=== PATIENT | female | born 1965 | race Caucasian/White ===

== ENCOUNTER 2016-05-14 08:00 | Outpatient (CLI) | payer MEDICAID | END 2016-05-14 23:59 | DX: E11.9 Type 2 diabetes mellitus without complications (principal) ==

== ENCOUNTER 2016-05-20 09:35 | Outpatient (CLI) | payer MEDICAID | END 2016-05-20 09:36 | DX: E55.9 Vitamin D deficiency, unspecified (principal); E53.8 Deficiency of other specified B group vitamins ==

== ENCOUNTER 2016-08-09 23:26 | Emergency (ER) | payer MEDICAID ==
--- NOTE | 2016-08-10 00:11 | ED Physician Documentation ---
PD HPI HEENT - Stated complaint Stated Complaint: RT EAR PAIN - Chief complaint Chief Complaint: General - History obtained from History obtained from: Patient - History of Present Illness Timing - onset: Yesterday Timing - duration: Days (2) Timing - details: Gradual onset, Still present Location: Right ear Improves: Medication Associated symptoms: Congestion, Rhinorrhea, Cough Similar symptoms before: Diagnosis (OM and sinusitis) Recently seen: Clinic (placed on zithromax 5 days ago for sinusitis.) - Additional information Additional information: 50 y/o female with chronic sinusitis has recently been placed on an course of zithromax for sinusitis and began to have pain in the right ear. She finished her antibiotic yesterday. Review of Systems Constitutional: reports: Myalgias, Fatigue. denies: Fever Eyes: denies: Decreased vision Ears: reports: Loss of hearing, Ear pain, Drainage/discharge Nose: reports: Rhinorrhea / runny nose, Congestion, Sinus pressure / pain Throat: reports: Sore throat Cardiac: denies: Chest pain / pressure, Palpitations Respiratory: reports: Cough. 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 : None HEENT: Chronic hearing loss Psych: Anxiety, Panic attacks Musculoskeletal: Osteoarthritis Derm: None - Past Surgical History Past Surgical History: Yes Ortho: Carpal Tunnel surgery /CUT ROLL MACHINE OFFBEARER: Other HEENT: Tonsil/Adenoidectomy - Present Medications Home Medications: Ambulatory Orders Medication Instructions Recorded Confirmed Vit B12/FA/Pyridoxine HCl/Aa15 1 each PO DAILY 05/27/14 09/25/14 [Glycotrol Capsule] Vit D3-Vit K/Berberine/Hops 1 each PO DAILY 05/27/14 09/25/14 [Ostera Tablet] Metformin HCl 09/25/14 09/25/14 Cefuroxime Axetil [Cefuroxime] 500 mg PO BID #28 tablet 08/10/16 - Allergies Allergies/Adverse Reactions: Allergies Allergy/AdvReac Type Severity Reaction Status Date / Time acetaminophen [From Vicodin] AdvReac Unknown Itching Verified 08/09/16 23:40 cephalexin AdvReac Unknown Respiratory Verified 08/09/16 23:40 ciprofloxacin [From Cipro] AdvReac Unknown Nausea Verified 08/09/16 23:40 ciprofloxacin HCl * AdvReac Unknown Nausea Verified 08/09/16 23:40 [From Cipro] codeine AdvReac Unknown Hives Verified 08/09/16 23:40 hydrocodone bitartrate * AdvReac Unknown Itching Verified 08/09/16 23:40 [From Vicodin] Penicillins AdvReac Unknown Itching Verified 08/09/16 23:40 propoxyphene HCl * AdvReac Unknown Hives Verified 08/09/16 23:40 [From Darvon] doxycycline AdvReac Unknown Verified 08/09/16 23:40 sulfamethoxazole AdvReac Unknown Verified 08/09/16 23:40 [From Bactrim] trimethoprim [From Bactrim] AdvReac Unknown Verified 05/28/14 08:57 - Social History Does the pt smoke?: Yes Smoking Status: Current every day smoker Does the pt drink ETOH?: Yes Does the pt have substance abuse?: No - Immunizations Immunizations are current?: Yes - POLST Patient has POLST: No PD ED PE NORMAL - Vitals Vital signs reviewed: Yes (hypertensive ) - General General: Alert and oriented X 3, Well developed/nourished - HEENT HEENT: Atraumatic, PERRL, EOMI, Other (The right TM is not visible secondary to a rupture. The left is with mild inflamation. The pharynx is without acute intlamation. There is an ulceration on the left tonsilar pillar. ) - Neck Neck: Supple, no meningeal sign, No bony TTP - Cardiac Cardiac: RRR, No murmur - Respiratory Respiratory: No respiratory distress, Clear bilaterally - Abdomen Abdomen: Soft, Non tender - Back Back: No CVA TTP, No spinal TTP - Derm Derm: Normal color, Warm and dry, No rash - Extremities Extremities: No deformity, No edema - Neuro Neuro: No motor deficit, No sensory deficit - Psych Psych: Normal mood, Normal affect Results - Vitals Vitals: Vital Signs - 24 hr 08/09/16 08/10/16 23:39 00:45 Temperature 35.3 C L Heart Rate 89 80 Respiratory 17 16 Rate Blood Pressure 167/84 H 143/83 H O2 Saturation 99 99 Oxygen O2 Source Room air PD MEDICAL DECISION MAKING - ED course Complexity details: reviewed old records, re-evaluated patient, considered differential, d/w patient ED course: 50 y/o female with a ruptured TM. She is treated with decadron and IM rocephin. Departure - Departure Disposition: 01 Home, Self Care Clinical Impression: Otitis media Qualifiers: Otitis media type: suppurative Laterality: right Chronicity: acute Recurrence: not specified as recurrent Spontaneous tympanic membrane rupture: with spontaneous rupture Qualified Code(s): H66.011 - Acute suppurative otitis media with spontaneous rupture of ear drum, right ear Condition: Stable Instructions: ED Otitis Media Acute Adult Follow-Up: Rupal Williamson PA-C [Primary Care Provider] - [facility] [Provider Group] Prescriptions: Cefuroxime Axetil [Cefuroxime] 500 mg PO BID #28 tablet Discharge Date/Time: 08/10/16 00:45
[2016-08-10] MEDS ORDERED: cefTRIAXone 1 GM VIAL IM STA (00:14)
[2016-08-10] MEDS ORDERED: DEXAMETHASONE 10 MG/ML VIAL PO STA (00:14)
[2016-08-10] MEDS ORDERED: cefTRIAXone 1 GM VIAL ONE (00:15)
[2016-08-10] MEDS ORDERED: CHERRY SYRUP 10 ML UDC PO ONE (00:15)
[2016-08-10] MEDS ORDERED: DEXAMETHASONE 10 MG/ML VIAL ONE (00:15)
[2016-08-10] MEDS ORDERED: LIDOCAINE 1% 2 ML VIAL ONE (00:15)
[2016-08-10 01:13] VITALS: BP 143/83
== END 2016-08-10 00:45 | disposition home or self-care (01) ==
LOC: ED 23:26
DX: H66.011 Acute suppurative otitis media with spontaneous rupture of ear drum, right ear (principal); G47.30 Sleep apnea, unspecified; G35 Multiple sclerosis; E11.42 Type 2 diabetes mellitus with diabetic polyneuropathy; Z79.84 Long term (current) use of oral hypoglycemic drugs; M19.90 Unspecified osteoarthritis, unspecified site; F17.200 Nicotine dependence, unspecified, uncomplicated
CPT/HCPCS: 96372; 99283; A9270

== ENCOUNTER 2016-08-12 12:15 | Emergency (ER) | payer MEDICAID ==
[2016-08-12] MEDS ORDERED: IBUPROFEN 800 MG TABLET PO STA (13:36)
[2016-08-12] MEDS ORDERED: IBUPROFEN 800 MG TABLET PO ONE (13:42)
--- NOTE | 2016-08-12 13:57 | ED Physician Documentation ---
PD HPI HEENT - Stated complaint Stated Complaint: R EAR PAIN - Chief complaint Chief Complaint: Heent - History obtained from History obtained from: Patient - History of Present Illness Timing - onset: How many weeks ago (1) Timing - details: Still present Location: Right ear Recently seen: Clinic, Emergency Dept - Treatment prior to arrival Treatment prior to arrival: Has completed a course of Zithromax for sinus infection, and has been on Ceftin for the past 3 days. - Additional information Additional information: The patient is a 50-year-old female with history of diabetes and multiple sclerosis, who presents with right earache and drainage from the right ear. She was seen in clinic 1 week ago and was prescribed Zithromax for a sinus infection. 3 days ago she was seen in the emergency department here and was diagnosed with right otitis media with ruptured tympanic membrane. She was prescribed Ceftin at that time, and has been taking the antibiotic for the past 2 days. This morning she awoke again with drainage from her right ear, and recurrent pain in her ear. She also reports sinus pressure. She denies fever, sore throat, or cough. She denies history of similar symptoms in the past. Review of Systems Constitutional: denies: Fever Eyes: denies: Irritation Ears: reports: Ear pain, Drainage/discharge Nose: reports: Sinus pressure / pain Throat: denies: Sore throat Cardiac: denies: Chest pain / pressure Respiratory: denies: Dyspnea, Cough GI: denies: Abdominal Pain, Nausea, Vomiting : denies: Dysuria Skin: denies: Rash Musculoskeletal: denies: Extremity pain Neurologic: denies: Headache PD PAST MEDICAL HISTORY - Past Medical History Cardiovascular: None Respiratory: Sleep apnea Neuro: Headache/migraine, Peripheral neuropathy, Multiple sclerosis Endocrine/Autoimmune: Type 2 diabetes GI: 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 : None HEENT: Chronic hearing loss Psych: Anxiety, Panic attacks Musculoskeletal: Osteoarthritis Derm: None - Past Surgical History Past Surgical History: Yes Ortho: Carpal Tunnel surgery /INSPECTOR MACHINE 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: Other HEENT: Tonsil/Adenoidectomy - Present Medications Home Medications: Ambulatory Orders Medication Instructions Recorded Confirmed Vit B12/FA/Pyridoxine HCl/Aa15 1 each PO DAILY 05/27/14 08/12/16 [Glycotrol Capsule] Vit D3-Vit K/Berberine/Hops 1 each PO DAILY 05/27/14 08/12/16 [Ostera Tablet] Metformin HCl 500 mg PO DAILY 09/25/14 08/12/16 Cefuroxime Axetil [Cefuroxime] 500 mg PO BID #28 tablet 08/10/16 08/12/16 Azithromycin [Zithromax] 250 mg PO DAILY #6 tablet 08/12/16 Cetirizine [ZyrTEC] 10 mg PO DAILY 08/12/16 08/12/16 Gabapentin [Gabapentin] 300 mg PO BID 08/12/16 08/12/16 Meloxicam [Mobic] 15 mg PO DAILY 08/12/16 08/12/16 - Allergies Allergies/Adverse Reactions: Allergies Allergy/AdvReac Type Severity Reaction Status Date / Time acetaminophen [From Vicodin] AdvReac Unknown Itching Verified 08/12/16 12:22 cephalexin AdvReac Unknown Respiratory Verified 08/12/16 12:22 ciprofloxacin [From Cipro] AdvReac Unknown Nausea Verified 08/12/16 12:22 ciprofloxacin HCl * AdvReac Unknown Nausea Verified 08/12/16 12:22 [From Cipro] codeine AdvReac Unknown Hives Verified 08/12/16 12:22 hydrocodone bitartrate * AdvReac Unknown Itching Verified 08/12/16 12:22 [From Vicodin] Penicillins AdvReac Unknown Itching Verified 08/12/16 12:22 propoxyphene HCl * AdvReac Unknown Hives Verified 08/12/16 12:22 [From Darvon] doxycycline AdvReac Unknown Verified 08/12/16 12:22 sulfamethoxazole AdvReac Unknown Verified 08/12/16 12:22 [From Bactrim] trimethoprim [From Bactrim] AdvReac Unknown Verified 08/12/16 12:22 - Social History Does the pt smoke?: Yes Smoking Status: Current every day smoker Does the pt drink ETOH?: Yes Does the pt have substance abuse?: No - Immunizations Immunizations are current?: Yes - POLST Patient has POLST: No PD ED PE NORMAL - Vitals Vital signs reviewed: Yes (initially hypertensive) - General General: Alert and oriented X 3, Well developed/nourished - HEENT HEENT: Atraumatic, EOMI, Pharynx benign, Other (Right tympanic membrane is erythematous and angry appearing, with loss of landmarks. There is decreased hearing on the right compared to the left.) - Neck Neck: Supple, no meningeal sign, No adenopathy, No JVD - Cardiac Cardiac: RRR, No murmur - Respiratory Respiratory: No respiratory distress, Clear bilaterally - Abdomen Abdomen: Soft, Non tender - Back Back: No CVA TTP - Derm Derm: No rash - Extremities Extremities: No edema, No calf tenderness / cord - Neuro Neuro: Alert and oriented X 3, No motor deficit, Normal speech Results - Vitals Vitals: Oxygen O2 Source Room air PD MEDICAL DECISION MAKING - ED course Complexity details: reviewed old records, considered differential, d/w patient ED course: The patient's presentation is significant for persistent right otitis media despite current treatment with Ceftin. She has history of multiple antibiotic allergies, making antibiotic choice difficulty. Although she was recently treated with Zithromax, this is the most reasonable antibiotic choice, given the restrictions caused by her multiple allergies. Treatment in the emergency department included administration of ibuprofen 800 mg orally. She is being discharged with prescription for Zithromax. I discussed with her antibiotic treatment, outpatient follow-up, as well as potentially worrisome signs or symptoms that should prompt reevaluation in the emergency department. Departure - Departure Disposition: 01 Home, Self Care Clinical Impression: Otitis media Qualifiers: Otitis media type: suppurative Laterality: right Chronicity: acute Condition: Stable Instructions: ED Otitis Media Acute Adult Follow-Up: Mindy Lombardi ARNP [Credentialed Staff Provider] - Prescriptions: Azithromycin [Zithromax] 250 mg PO DAILY #6 tablet Comments: Take Zithromax daily as prescribed. You can continue taking Ceftin as previously prescribed. Eat probiotic yogurt while on antibiotic therapy. You can use Tylenol or ibuprofen if needed for fever or discomfort. Follow up with your primary physician within one to 2 weeks. Call to schedule an appointment. Return to the emergency department if you develop increasing pain or otherwise worsening symptoms. Discharge Date/Time: 08/12/16 14:00
[2016-08-12 14:05] VITALS: BP 140/100
== END 2016-08-12 14:00 | disposition home or self-care (01) ==
LOC: ED 12:15
DX: H66.001 Acute suppurative otitis media without spontaneous rupture of ear drum, right ear (principal); E11.42 Type 2 diabetes mellitus with diabetic polyneuropathy; Z79.84 Long term (current) use of oral hypoglycemic drugs; G35 Multiple sclerosis; G47.30 Sleep apnea, unspecified; M19.90 Unspecified osteoarthritis, unspecified site; F17.200 Nicotine dependence, unspecified, uncomplicated
CPT/HCPCS: 99283; A9270

== ENCOUNTER 2016-10-15 12:18 | Outpatient (CLI) | payer MEDICAID ==
--- NOTE | 2016-10-16 08:43 | XRAY Report ---
THREE VIEW CERVICAL SPINE: 10/15/2016 CLINICAL INDICATION: Neck pain. AP, lateral, odontoid views of the cervical spine demonstrate mild degenerative disk and facet diseas e. There is no evidence of fracture or subluxation. The prevertebral soft tissues are unremarkable. IMPRESSION: MILD DEGENERATIVE CHANGES. JOB #: [id number] EXT JOB #:[id number]
== END 2016-10-15 12:19 | disposition home or self-care (01) ==
LOC: DI.N 12:18
PROVIDERS: ATTEND Physician Assistant
DX: M50.30 Other cervical disc degeneration, unspecified cervical region (principal); M47.892 Other spondylosis, cervical region
CPT/HCPCS: 72040

== ENCOUNTER 2017-07-25 08:00 | Outpatient (CLI) | payer MEDICAID ==
[2017-07-25 13:58] LABS: HB2 TOTAL 15.4 g/dL; HEMOGLOBIN A1C 0.97 g/dL; HEMOGLOBIN A1C % 7.9 % (4.6-6.2)
== END 2017-07-25 08:01 | disposition home or self-care (01) ==
LOC: LAB.N 08:00
PROVIDERS: ATTEND Nurse Practitioner Gerontology
DX: E11.9 Type 2 diabetes mellitus without complications (principal)
CPT/HCPCS: 36415; 83036

== ENCOUNTER 2018-02-12 13:42 | Emergency (ER) | payer MEDICAID ==
[2018-02-12 13:48] VITALS: BP 136/116
--- NOTE | 2018-02-12 13:55 | ED Physician Documentation ---
PD HPI LOWER EXT INJURY - Stated complaint Stated Complaint: LEFT TOE INJ - Chief complaint Chief Complaint: Ext Problem - History obtained from History obtained from: Patient - History of Present Illness PD HPI LOW EXT INJURY LOCATION: Left (She slammed her left foot after slipping this morning and has moderate pain in the area of the left first metatarsal and great toe. She is able to walk and bear weight. No other injuries. 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 : None HEENT: Chronic hearing loss Psych: Anxiety, Panic attacks Musculoskeletal: Osteoarthritis Derm: None - Past Surgical History Past Surgical History: Yes Ortho: Carpal Tunnel surgery /BOOT MAKER: Other HEENT: Tonsil/Adenoidectomy - Present Medications Home Medications: Ambulatory Orders Medication Instructions Recorded Confirmed Vit B12/FA/Pyridoxine HCl/Aa15 1 each PO DAILY 05/27/14 08/12/16 [Glycotrol Capsule] Vit D3-Vit K/Berberine/Hops 1 each PO DAILY 05/27/14 08/12/16 [Ostera Tablet] RX: Metformin HCl 500 mg PO DAILY 09/25/14 08/12/16 RX: Cefuroxime Axetil [Cefuroxime] 500 mg PO BID #28 tablet 08/10/16 08/12/16 Azithromycin [Zithromax] 250 mg PO DAILY #6 tablet 08/12/16 Gabapentin 300 mg PO BID 08/12/16 08/12/16 RX: Cetirizine [ZyrTEC] 10 mg PO DAILY 08/12/16 08/12/16 RX: Meloxicam [Mobic] 15 mg PO DAILY 08/12/16 08/12/16 - Allergies Allergies/Adverse Reactions: Allergies Allergy/AdvReac Type Severity Reaction Status Date / Time acetaminophen [From Vicodin] AdvReac Unknown Itching Verified 02/12/18 13:48 cephalexin AdvReac Unknown Respiratory Verified 02/12/18 13:48 ciprofloxacin [From Cipro] AdvReac Unknown Nausea Verified 02/12/18 13:48 ciprofloxacin HCl * AdvReac Unknown Nausea Verified 02/12/18 13:48 [From Cipro] codeine AdvReac Unknown Hives Verified 02/12/18 13:48 hydrocodone bitartrate * AdvReac Unknown Itching Verified 02/12/18 13:48 [From Vicodin] Penicillins AdvReac Unknown Itching Verified 02/12/18 13:48 propoxyphene HCl * AdvReac Unknown Hives Verified 02/12/18 13:48 [From Darvon] doxycycline AdvReac Unknown Verified 02/12/18 13:48 sulfamethoxazole AdvReac Unknown Verified 02/12/18 13:48 [From Bactrim] trimethoprim [From Bactrim] AdvReac Unknown Verified 02/12/18 13:48 - Social History Does the pt smoke?: Yes Smoking Status: Current every day smoker Does the pt drink ETOH?: Yes Does the pt have substance abuse?: No - Immunizations Immunizations are current?: Yes - POLST Patient has POLST: No PD ED PE NORMAL - Vitals Vital signs reviewed: Yes - General General: Alert and oriented X 3, No acute distress - Neck Neck: Supple, no meningeal sign, No bony TTP - Extremities Extremities: Other (Tender to the distal first metatarsal and great toe without deformity. Normal neurovascular status in all the digits. No ankle tenderness.) - Neuro Neuro: Alert and oriented X 3, Normal speech Results - Vitals Vitals: Vital Signs - 24 hr 02/12/18 13:46 Temperature 37.0 C Heart Rate 90 Respiratory 22 Rate Blood Pressure 136/116 H O2 Saturation 97 Oxygen O2 Source Room air - Rads (name of study) L foot 3v Radiology: EMP read contemporaneously (Nondisplaced fracture through the metaphysis of the first distal phalanx) Departure - Departure Disposition: 01 Home, Self Care Clinical Impression: Fracture of left great toe Condition: Good Record reviewed to determine appropriate education?: Yes Instructions: ED Fx Toe Closed Follow-Up: [facility] [Provider Group] - Within 1 week Comments: Keep the first and second toes renetta taped as shown, but she can remove that for showering etc. Also wear the shoe when up and around but you do not need to wear it in bed. Follow-up with orthopedic surgeon within the week. Call tomorrow for an appointment. Your blood pressure was elevated today on check into the emergency department. This does not mean that you have hypertension, it is a common phenomenon to come to the emergency department and have elevated blood pressure. I recommend that you see your primary care physician within the week to have it rechecked when you are feeling better. Discharge Date/Time: 02/12/18 14:17
--- NOTE | 2018-02-12 14:24 | XRAY Report ---
Reason: foot inj, 1st digit and MT Procedure Date: 02/12/2018 Accession Number: [id number] / [id number] Procedure: XR - Foot 3 View LT CPT Code: FULL RESULT: EXAM: LEFT FOOT RADIOGRAPHY EXAM DATE: 02/12/2018 02:05 PM. CLINICAL HISTORY: Foot inj, 1st digit and MT. COMPARISON: None. TECHNIQUE: 3 views. FINDINGS: Bones: There is slight lucency through the metaphysis of the first distal phalanx. This is in the region of the physis; however, lucency through the physis is not typical for a patient of this age, and this could conceivably represent nondisplaced fracture. No other finding suspicious for acute fracture. There are small posterior and plantar calcaneal spurs. Joints: No dislocation or subluxation. Slight joint space narrowing present at the first metatarsophalangeal joint. Soft Tissues: Unremarkable. IMPRESSION: Possible nondisplaced fracture through the metaphysis of the first distal phalanx. RADIA
== END 2018-02-12 14:17 | disposition home or self-care (01) ==
LOC: ED 13:42
DX: S92.425A Nondisplaced fracture of distal phalanx of left great toe, initial encounter for closed fracture (principal); W01.198A Fall on same level from slipping, tripping and stumbling with subsequent striking against other object, initial encounter; R03.0 Elevated blood-pressure reading, without diagnosis of hypertension; E11.9 Type 2 diabetes mellitus without complications; Z79.84 Long term (current) use of oral hypoglycemic drugs; F17.200 Nicotine dependence, unspecified, uncomplicated
CPT/HCPCS: 99282; 99283

== ENCOUNTER 2018-08-24 22:05 | Emergency (ER) | payer MEDICAID ==
--- NOTE | 2018-08-24 22:49 | ED Physician Documentation ---
History of Present Illness - Stated complaint Stated Complaint: LT BIG TOE INJURY - Chief complaint Chief Complaint: Trauma Ext - History obtained from History obtained from: Patient - History of Present Illness Timing: Prior to arrival - Additonal information Additional information: Patient is a 52-year-old female with history of left great toe fracture presen ting with left great toe pain after she accidentally hit it on a stool just prior to arrival. Patient reports pain, as well as swelling to the distal aspect of the great toe, but no other skin changes. Patient denies any significant change in sensation, strength, range of motion to the toe. Patient notes that she has broken this toe several times and subsequently she has developed a mild deformity. No other injuries. No abrasions, lacerations, or wounds. No other improving or worsening factors noted. 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 : None HEENT: Chronic hearing loss Psych: Anxiety, Panic attacks Musculoskeletal: Osteoarthritis Derm: None - Past Surgical History Past Surgical History: Yes Ortho: Carpal Tunnel surgery /ELECTRICAL INSTRUMENT MAKER: Other HEENT: Tonsil/Adenoidectomy - Present Medications Home Medications: Ambulatory Orders Medication Instructions Recorded Confirmed Vit B12/FA/Pyridoxine HCl/Aa15 1 each PO DAILY 05/27/14 08/12/16 [Glycotrol Capsule] Vit D3-Vit K/Berberine/Hops 1 each PO DAILY 05/27/14 08/12/16 [Ostera Tablet] Metformin HCl 500 mg PO DAILY 09/25/14 08/12/16 Cetirizine [ZyrTEC] 10 mg PO DAILY 08/12/16 08/12/16 Gabapentin 300 mg PO BID 08/12/16 08/12/16 Meloxicam [Mobic] 15 mg PO DAILY 08/12/16 08/12/16 Promethazine [Phenergan] 1 tab PO DAILY 08/24/18 08/24/18 Zonisamide 25 mg PO PRN PRN 08/24/18 08/24/18 predniSONE [Prednisone] 20 mg PO DAILY 08/24/18 08/24/18 - Allergies Allergies/Adverse Reactions: Allergies Allergy/AdvReac Type Severity Reaction Status Date / Time acetaminophen [From Vicodin] AdvReac Unknown Itching Verified 08/24/18 22:12 cephalexin AdvReac Unknown Respiratory Verified 08/24/18 22:12 ciprofloxacin [From Cipro] AdvReac Unknown Nausea Verified 08/24/18 22:12 ciprofloxacin HCl * AdvReac Unknown Nausea Verified 08/24/18 22:12 [From Cipro] codeine AdvReac Unknown Hives Verified 08/24/18 22:12 hydrocodone bitartrate * AdvReac Unknown Itching Verified 08/24/18 22:12 [From Vicodin] Penicillins AdvReac Unknown Itching Verified 08/24/18 22:12 propoxyphene HCl * AdvReac Unknown Hives Verified 08/24/18 22:12 [From Darvon] doxycycline AdvReac Unknown Verified 08/24/18 22:12 sulfamethoxazole AdvReac Unknown Verified 08/24/18 22:12 [From Bactrim] trimethoprim [From Bactrim] AdvReac Unknown Verified 08/24/18 22:12 - Social History Does the pt smoke?: Yes Smoking Status: Current every day smoker Does the pt drink ETOH?: Yes Does the pt have substance abuse?: No - Immunizations Immunizations are current?: Yes - POLST Patient has POLST: No PD ED PE NORMAL - Vitals Vital signs reviewed: Yes - General General: Alert and oriented X 3, No acute distress, Well developed/nourished - Cardiac Cardiac: Strong equal pulses (Cap refill brisk) - Derm Derm: Normal color, Warm and dry, No rash - Extremities Extremities: No deformity. No: No tenderness to palpate (Mild tenderness to palpation of the distal left great toe but no evidence of bony deformity or nail damage. Remainder of left lower extremity without deformity, pain, or change in sensation, strength, range of motion.) - Neuro Neuro: Alert and oriented X 3, No motor deficit, No sensory deficit - Psych Psych: Normal mood, Normal affect Results - Vitals Vitals: Vital Signs - 24 hr 08/24/18 22:08 Temperature 36.7 C Heart Rate 84 Respiratory 16 Rate Blood Pressure 152/96 H O2 Saturation 98 Oxygen O2 Source Room air PD MEDICAL DECISION MAKING - ED course Complexity details: reviewed results, considered differential, d/w patient ED course: Patient presenting with left great toe injury and plain films obtained to further evaluate for bony injury such as fracture or dislocation. Plain films returned unremarkable. Given traumatic mechanism, as well as physical exam findings, have lower suspicion for other etiologies including cellulitis, joint infection, gout, but considered. At this time, do not feel patient requires further work-up, but can be discharged home on supportive cares. Discussed return precautions and appropriate follow-up. Patient voiced understanding and is comfortable with discharge plan. Departure - Departure Disposition: 01 Home, Self Care Clinical Impression: Injury of toe Qualifiers: Encounter type: initial encounter Laterality: left Qualified Code(s): S99.922A - Unspecified injury of left foot, initial encounter Condition: Good Instructions: ED Sprain Toe Follow-Up: your,doctor [Other] - Within 3 Days Comments: Please continue any home medications as previously instructed. Recommend use of anti-inflammatory such as naproxen, ibuprofen, Tylenol to help relieve pain, as well as elevation and ice application to reduce swelling. Follow-up with your primary care physician in next 2 to 3 days and return to ED sooner if experience worsening symptoms or other concerns.
--- NOTE | 2018-08-24 23:06 | XRAY Report ---
Reason: injury Procedure Date: 08/24/2018 Accession Number: [id number] / [id number] Procedure: XR - Toe(s) LT CPT Code: FULL RESULT: EXAM: LEFT TOE RADIOGRAPHY. EXAM DATE: 08/24/2018 10:42 PM. CLINICAL HISTORY: Injury, left great toe. COMPARISON: TOE(S) LT 04/11/2018 1:34 PM. TECHNIQUE: 3 views. FINDINGS: Bones: Previous distal phalanx fracture is essentially healed. No definitive new displaced fracture seen in the left great toe. Joints: No malalignment. No significant degenerative changes. Soft Tissues: Normal. No soft tissue swelling. IMPRESSION: Previous distal phalanx fracture is nearly completely healed. No definitive new displaced fracture seen in the left great toe. RADIA
[2018-08-24 23:36] VITALS: BP 140/68
== END 2018-08-24 23:35 | disposition home or self-care (01) ==
LOC: ED 22:05
DX: S99.922A Unspecified injury of left foot, initial encounter (principal); W22.03XA Walked into furniture, initial encounter; E11.9 Type 2 diabetes mellitus without complications; Z79.84 Long term (current) use of oral hypoglycemic drugs; F17.200 Nicotine dependence, unspecified, uncomplicated
CPT/HCPCS: 73660; 99282; 99283

== ENCOUNTER 2018-09-13 09:26 | Outpatient (CLI) | payer MEDICAID ==
--- NOTE | 2018-09-14 09:06 | Mammography Report ---
Reason: SCREENING MAMMO Procedure Date: 09/13/2018 Accession Number: [id number] / [id number] Procedure: MGN - Screening Mammo Dig Bilat CPT Code: FULL RESULT: EXAM: Screening Mammo Dig Bilat DATE: 09/13/2018 9:54 AM CLINICAL HISTORY: Screening encounter. History of early menses. TECHNIQUE: (B) - Bilateral CC and MLO views were obtained. COMPARISON: 04/03/2014 through 02/19/2013. PARENCHYMAL PATTERN: (A) - The breast(s) demonstrate(s) scattered fibroglandular densities. FINDINGS: There are no suspicious masses, calcifications, or areas of distortion. IMPRESSION: Negative examination. BI-RADS category 1. RECOMMENDATION: (ANNUAL) - Recommend routine annual screening mammography. BI-RADS CATEGORY: (1) - Negative. STANDARD QUALIFYING STATEMENTS: 1. This examination was not reviewed with the aid of Computer-Aided Detection (CAD). 2. A negative or benign imaging report should not preclude biopsy if clinically suspicious findings are present. 3. Dense breasts may obscure an underlying neoplasm. 4. This examination was reviewed without the aid of 3D breast imaging (tomosynthesis).
== END 2018-09-13 09:27 | disposition home or self-care (01) ==
LOC: DI.N 09:26
PROVIDERS: ATTEND Obstetrics & Gynecology
DX: Z12.31 Encounter for screening mammogram for malignant neoplasm of breast (principal)
CPT/HCPCS: 77067

== ENCOUNTER 2018-10-28 10:14 | Observation (INO) | payer MEDICAID ==
[2018-10-28 12:01] LABS: BASOPHILS # (AUTO) 0.1 10^3/uL (0.0-0.1); BASOPHILS % (AUTO) 0.7 %; EOSINOPHILS # (AUTO) 0.4 10^3/uL (0.0-0.7); EOSINOPHILS % (AUTO) 3.7 %; LYMPHOCYTES # (AUTO) 2.5 10^3/uL (1.5-3.5); LYMPHOCYTES % (AUTO) 24.6 %; MEAN CORPUSCULAR HEMOGLOBIN 30.1 pg (27.0-31.0); MEAN CORPUSCULAR VOLUME 88.6 fL (81.0-99.0); MEAN PLATELET VOLUME 9.7 fL (7.9-10.8); MONOCYTES # (AUTO) 0.8 10^3/uL (0.0-1.0); MONOCYTES % (AUTO) 7.4 %; NEUTROPHILS # (AUTO) 6.5 10^3/uL (1.5-6.6); PLT - PLATELET COUNT 301 10^3/uL (130-450); RED BLOOD COUNT 4.65 10^6/uL (4.20-5.40); RED CELL DISTRIBUTION WIDTH 12.1 % (12.0-15.0); WHITE BLOOD COUNT 10.3 x10^3/uL (4.8-10.8)
--- NOTE | 2018-10-28 12:13 | XRAY Report ---
Reason: Wound infection to Left ankle area Procedure Date: 10/28/2018 Accession Number: [id number] / [id number] Procedure: XR - Ankle 2 View LT CPT Code: FULL RESULT: EXAM: LEFT ANKLE RADIOGRAPHY EXAM DATE: 10/28/2018 11:43 AM. CLINICAL HISTORY: Wound infection to Left ankle area. COMPARISON: None available. TECHNIQUE: 2 views. FINDINGS: Bones: No acute fractures are evident. No erosive changes. There is a tiny plantar calcaneal heel spur. There is minor distal Achilles tendon enthesopathy. Joints: Normal. No effusion. No subluxations. The ankle mortise is normally aligned. Soft Tissues: There may be some soft tissue swelling posteriorly. There is a 2 mm density projecting over the plantar midfoot subcutaneous tissues on the lateral view. IMPRESSION: 1. No obvious radiographic changes of osteomyelitis. 2. Tiny density projecting over the plantar midfoot subcutaneous tissues, cannot exclude foreign body. RADIA
[2018-10-28 12:14] LABS: BILIRUBIN,TOTAL 0.4 mg/dL (0.2-1.0); CALCIUM 9.3 mg/dL (8.5-10.3); CREATININE 0.8 mg/dL (0.4-1.0)
[2018-10-28 12:23] LABS: HCG,QUALITATIVE BLOOD NEGATIVE
[2018-10-28] MEDS ORDERED: fentaNYL 100 MCG/2 ML VIAL IVP STA (13:11)
--- NOTE | 2018-10-28 15:09 | ED Physician Documentation ---
History of Present Illness - Stated complaint Stated Complaint: LT FOOT PAIN - Chief complaint Chief Complaint: Wound - Additonal information Additional information: This is a 52-year-old female with a history of diabetes who presents with i ncreasing redness and signs of infection over her left posterior leg. Patient states around a week ago she scraped her leg against a fence, she had a wound which appeared that he was getting infected so she saw physician who prescribed her clindamycin. She has been taking clindamycin however the redness has been increasing and over the last day she states that is progressed around 4 inches on all sides and is increasingly tender. She denies fever. Review of Systems Constitutional: denies: Fever Eyes: denies: Loss of vision Nose: denies: Rhinorrhea / runny nose Cardiac: denies: Chest pain / pressure Respiratory: denies: Dyspnea GI: denies: Abdominal Pain Skin: reports: Lesions Musculoskeletal: reports: Extremity pain Neurologic: denies: Generalized weakness PD PAST MEDICAL HISTORY - Past Medical History Cardiovascular: None Respiratory: COPD, Sleep apnea Endocrine/Autoimmune: Type 2 diabetes GI: None REVENUE FIELD AGENT: None : None HEENT: Chronic hearing loss Psych: Anxiety, Panic attacks Musculoskeletal: Osteoarthritis, Rheumatoid arthritis Derm: None - Past Surgical History Past Surgical History: Yes Ortho: Carpal Tunnel surgery /REVENUE FIELD AGENT: Other HEENT: Tonsil/Adenoidectomy - Present Medications Home Medications: Ambulatory Orders Medication Instructions Recorded Confirmed Metformin HCl 1,000 mg PO BIDWM 09/25/14 10/28/18 Cetirizine [ZyrTEC] 10 mg PO DAILY 08/12/16 10/28/18 Zonisamide 100 mg PO QPM 08/24/18 10/28/18 Albuterol Sulfate [Albuterol 2 puffs INH Q4H PRN 10/28/18 10/28/18 Sulfate Hfa] Cholecalciferol (Vitamin D3) 6,000 units PO DAILY 10/28/18 10/28/18 [Vitamin D3] Duloxetine HCl 30 mg PO QPM 10/28/18 10/28/18 Fluticasone [Flonase] 2 spray SB DAILY 10/28/18 10/28/18 Gabapentin 300 mg PO DAILY 10/28/18 10/28/18 Gabapentin 600 mg PO QPM 10/28/18 10/28/18 Glatiramer Acetate [Copaxone] 40 mg SUBQ SUWEFR@0900 10/28/18 10/28/18 Meloxicam 7.5 mg PO BID 10/28/18 10/28/18 Promethazine HCl 6.25 mg PO Q6H PRN 10/28/18 10/28/18 Rizatriptan Benzoate [Rizatriptan] 10 mg PO ONCE PRN 10/28/18 10/28/18 - Allergies Allergies/Adverse Reactions: Allergies Allergy/AdvReac Type Severity Reaction Status Date / Time acetaminophen [From Vicodin] AdvReac Unknown Itching Verified 08/24/18 22:12 cephalexin AdvReac Unknown Respiratory Verified 08/24/18 22:12 ciprofloxacin [From Cipro] AdvReac Unknown Nausea Verified 08/24/18 22:12 codeine AdvReac Unknown Hives Verified 08/24/18 22:12 hydrocodone bitartrate * AdvReac Unknown Itching Verified 08/24/18 22:12 [From Vicodin] Penicillins AdvReac Unknown Itching Verified 08/24/18 22:12 propoxyphene HCl * AdvReac Unknown Hives Verified 08/24/18 22:12 [From Darvon] doxycycline AdvReac Unknown Verified 08/24/18 22:12 sulfamethoxazole AdvReac Unknown Verified 08/24/18 22:12 [From Bactrim] trimethoprim [From Bactrim] AdvReac Unknown Verified 08/24/18 22:12 - Social History Does the pt smoke?: Yes Smoking Status: Current every day smoker Does the pt drink ETOH?: Yes Does the pt have substance abuse?: No - Immunizations Immunizations are current?: Yes - POLST Patient has POLST: No PD ED PE NORMAL - Vitals Vital signs reviewed: Yes - General General: Alert and oriented X 3 - HEENT HEENT: PERRL - Cardiac Cardiac: RRR, No murmur - Respiratory Respiratory: Clear bilaterally - Abdomen Abdomen: Soft, Non tender, Non distended - Derm Derm: Other (Over the posterior lower left leg there is a 1cm ulceration that extends throught the subcutaneous tissue. There is 4-6cm of circumferential erythema surrounding this wound, and the region is mildly tender to palpation. The calf muscle itself is non-tender, the extremity is neurovascularly intact.) - Extremities Extremities: No deformity - Neuro Neuro: Alert and oriented X 3 - Psych Psych: Normal mood, Normal affect Results - Vitals Vitals: Vital Signs - 24 hr 10/28/18 10/28/18 10:17 14:00 Temperature 36.3 C L 36.1 C L Heart Rate 85 69 Respiratory 16 20 Rate Blood Pressure 143/91 H 125/70 O2 Saturation 100 100 Oxygen O2 Source Room air - Labs Labs: Laboratory Tests 10/28/18 10/28/18 10/28/18 11:55 11:55 11:55 WBC 10.3 RBC 4.65 Hgb 14.0 Hct 41.2 MCV 88.6 MCH 30.1 MCHC 34.0 RDW 12.1 Plt Count 301 MPV 9.7 Neut # (Auto) 6.5 Lymph # (Auto) 2.5 Blackford # (Auto) 0.8 Eos # (Auto) 0.4 Baso # (Auto) 0.1 Absolute Nucleated RBC 0.00 Nucleated RBC % 0.0 Sodium 137 Potassium 4.0 Chloride 98 L Carbon Dioxide 24 Anion Gap 15.0 H BUN 12 Creatinine 0.8 Estimated GFR (MDRD) 76 L Glucose 240 H Lactic Acid 1.5 Calcium 9.3 Total Bilirubin 0.4 AST 17 ALT 14 Alkaline Phosphatase 110 Total Protein 8.0 Albumin 4.0 Globulin 4.0 Albumin/Globulin Ratio 1.0 Serum HCG, Qual 10/28/18 11:55 WBC RBC Hgb Hct MCV MCH MCHC RDW Plt Count MPV Neut # (Auto) Lymph # (Auto) Blackford # (Auto) Eos # (Auto) Baso # (Auto) Absolute Nucleated RBC Nucleated RBC % Sodium Potassium Chloride Carbon Dioxide Anion Gap BUN Creatinine Estimated GFR (MDRD) Glucose Lactic Acid Calcium Total Bilirubin AST ALT Alkaline Phosphatase Total Protein Albumin Globulin Albumin/Globulin Ratio Serum HCG, Qual NEGATIVE - Rads (name of study) XR ankle Radiology: Prelim report reviewed (No osteomyelitis) PD MEDICAL DECISION MAKING - ED course Complexity details: considered differential (Cellulitis, NSTI, diabetic wound, abscess, osteomyelitis, antibiotic failure) ED course: On exam patient has unremarkable vital signs. She has significant erythema around the wound on her leg, that has been spreading despite taking clindamycin. I marked the edges of wound erythema. Labs and blood cultures were drawn, lacti acid is normal, CBC unremarkable without leukocytosis. Patient is afebrile. She was started on broad spectrum antibiotics given the reported progression of her infection over the past 24 hours and her diabetes. XR shows no signs of osteomyelitis. Clinically she is overall well-appearing and on re-exam she does not have significant spread of the erythema, making NSTI unlikely. Patient was admitted to the hospital for further evaluation and treatment of her cellulitis refractory to PO abx. Departure - Departure Disposition: ED Place in Observation Discharge Date/Time: 10/28/18 16:54
[2018-10-28] MEDS ORDERED: TEMAZEPAM 15 MG CAPSULE PO PRN (15:34)
--- NOTE | 2018-10-28 15:42 | HISTORY & PHYSICAL EXAMINATION ---
Chief Complaint - Chief Complaint Chief Complaint: LLE cellulitis History of Present Illness - Admitted From Admitted From:: ED - History Obtained From Records Reviewed: yes History obtained from: patient, chart review Exam Limitations: none - History of Present Illness HPI Comment/Other: Khushboo Murray is an old appearing 52-year old white female with a past medical history of hypertension, multiple sclerosis affecting cognition/word finding, neurogenic bladder, tobacco dependence since age 17, methamphetamine dependence, COPD, RAHEEM without the use of a home CPAP, anxiety disorder, cervical dysplasia- high grade requiring several LEEP procedures, HPV, ganglion cyst of right hand, chronic pain syndrome, depression, anxiety, lumbago with sciatica, muscles spasms, chronic sinusitis, vitamin B12 deficiency, vitamin D deficiency, hepatitis C, vulvar cancer, migraines, and difficult social living situation. The patient presented with increasing redness, pain, swelling to her left posterior leg, near the achilles tendon. She admits to scraped her leg against a fence post about a week ago. She had a wound which appeared that he was getting infected so she saw Dr. Taylor, who prescribed her clindamycin. A wound culture was obtained and is pending from 10/26/2018. She has been taking clindamycin as prescribed, however, the redness, pain, and swelling to her LLE has been increasing, which is now around 4 inches on all sides of the injury greater than when she first saw her provider in the clinic. She is scheduled to have a LEEP procedure at [facility] with Dr. Benita Hicks next week, and wor estefania that this infection will prevent her from getting that done. She states that she has noticed some chills, increased thirst, and decreased appetite over the past 24 hours, but cannot check her blood sugars lately since she lost her glucometer. Her labs are insignificant without an elevated WBC count and without electrolyte abnormalities. She states that she used meth last on September 26, 2018 and her [employer] tox screen matches this claim with being negative for all substances. A left ankle x-ray shows an achilles bone spur without evidence of osteomyelitis. Vital signs were normal and she required no oxygen. She will be admitted to observation for IV treatment for at least one night of stay. History - Past Medical History Cardiovascular: reports: Hypertension, High cholesterol, Coronary artery disease, Peripheral Vascular Disease, Murmur Respiratory: reports: COPD, Emphysema, Pneumonia, Sleep apnea Neuro: reports: Headaches, Migraines, Peripheral neuropathy, Multiple sclerosis (since 2003), Other (cognitive impairment, word finding difficulties d/t MS) Endocrine/Autoimmune: reports: Type 2 diabetes GI: reports: GERD, Hepatitis (hep C) KETTLE LOADER: reports: Other (Vulvar cancer, +HPV) : reports: Retention, Incontinence, Nocturia, Frequency HEENT: reports: Chronic vision loss, Chronic sinusitis, Chronic hearing loss Psych: reports: Depression, Anxiety, Panic attacks, Post traumatic stress disorder Musculoskeletal: reports: Osteoarthritis, Rheumatoid arthritis Derm: reports: None, Other (Problems with hair/nails growing) MRSA Hx?: No - Past Surgical History General: reports: Colonoscopy, EGD Ortho: reports: Carpal Tunnel surgery /KETTLE LOADER: reports: LEEP (Cervical surgery), Other (vulvar cancer) HEENT: reports: Tonsil/Adenoidectomy Derm: reports: Skin grafts, Debridement (Status post 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 She has 4 grown children, 2 boys, 2 girls all of whom she is close to. She has lived on the [place] since [place]. She has had substance abuse problems for most of her adult life starting in her 20's including heroin, and methamphetamines. She has also been a life long cigarette smoker from age 17-currently ~ 1-2 PPD. She has never been an alcoholic. She has been through several recovery treatment programs in the past and would like to go again in the near future. She wishes to be a FULL code. - Substance History Use: Uses substance without health or social issues: Tobacco Use Issues: Anxiety Disorder, Mood Disorder - POLST Patient has POLST: No Meds/Allgy - Home Medications Home Medications: Ambulatory Orders Medication Instructions Recorded Confirmed Metformin HCl 1,000 mg PO BIDWM 09/25/14 10/28/18 Cetirizine [ZyrTEC] 10 mg PO DAILY 08/12/16 10/28/18 Zonisamide 100 mg PO QPM 08/24/18 10/28/18 Albuterol Sulfate [Albuterol 2 puffs INH Q4H PRN 10/28/18 10/28/18 Sulfate Hfa] Cholecalciferol (Vitamin D3) 6,000 units PO DAILY 10/28/18 10/28/18 [Vitamin D3] Duloxetine HCl 30 mg PO QPM 10/28/18 10/28/18 Fluticasone [Flonase] 2 spray SB DAILY 10/28/18 10/28/18 Gabapentin 300 mg PO DAILY 10/28/18 10/28/18 Gabapentin 600 mg PO QPM 10/28/18 10/28/18 Glatiramer Acetate [Copaxone] 40 mg SUBQ SUWEFR@0900 10/28/18 10/28/18 Meloxicam 7.5 mg PO BID 10/28/18 10/28/18 Promethazine HCl 6.25 mg PO Q6H PRN 10/28/18 10/28/18 Rizatriptan Benzoate [Rizatriptan] 10 mg PO ONCE PRN 10/28/18 10/28/18 - Allergies Allergies/Adverse Reactions: Allergies Allergy/AdvReac Type Severity Reaction Status Date / Time acetaminophen [From Vicodin] AdvReac Unknown Itching Verified 08/24/18 22:12 cephalexin AdvReac Unknown Respiratory Verified 08/24/18 22:12 ciprofloxacin [From Cipro] AdvReac Unknown Nausea Verified 08/24/18 22:12 codeine AdvReac Unknown Hives Verified 08/24/18 22:12 hydrocodone bitartrate * AdvReac Unknown Itching Verified 08/24/18 22:12 [From Vicodin] Penicillins AdvReac Unknown Itching Verified 08/24/18 22:12 propoxyphene HCl * AdvReac Unknown Hives Verified 08/24/18 22:12 [From Darvon] doxycycline AdvReac Unknown Verified 08/24/18 22:12 sulfamethoxazole AdvReac Unknown Verified 08/24/18 22:12 [From Bactrim] trimethoprim [From Bactrim] AdvReac Unknown Verified 08/24/18 22:12 Review of Systems - Constitutional Constitutional: reports: Fatigue, Chills, Weakness, Poor appetite - Eyes Eyes: reports: Vision loss, Corrective lenses - Ears, Nose & Throat Ears, Nose & Throat: reports: Nasal congestion, Postnasal drainage, Dentures, Sore throat, Hoarseness - Cardiovascular Cariovascular: reports: Decr. exercise tolerance - Respiratory Respiratory: reports: Cough, Sputum production, Wheezing, Snoring, SOB with e xertion - Gastrointestinal Gastrointestinal: reports: Abdominal distention, Constipation, Nausea, Reflux/heartburn, Bloating, Poor appetite - Genitourinary Genitourinary: reports: Dysuria, Urgency, Incontinence - Musculoskeletal Musculoskeletal: reports: Back pain, Muscle aches, Stiffness, Limited range of motion, Muscle weakness - Integumentary Integumentary: reports: Lesions, Dryness, Pigment changes, Nail changes - Neurological Neurological: reports: General weakness, Headache, Memory problems, Pre-existing deficit - Psychiatric Psychiatric: reports: Depression, Anxiety - Hematologic/Lymphatic Hematologic/Lymphatic: reports: Recurrent infections - All Other Systems All Other Systems: reports: Reviewed and negative Prior Level of Functionality: Lives independently, no recent falls, is the caregiver to her nephews. Drives a car. Exam - Vital Signs Reviewed Vital Signs: Yes Vital Signs: Vital Signs x48h Temp Pulse Resp BP Pulse Ox 10/28/18 14:00 36.1 C L 69 20 125/70 100 10/28/18 10:17 36.3 C L 85 16 143/91 H 100 - Physical Exam General Appearance: positive: No acute distress, Alert, Anxious Eyes Bilateral: positive: PERRL ENT: positive: Pharyngeal erythema, Oral lesions, Dry mucous membranes Neck: positive: No JVD, Trachea midline, Lymphadenopathy (R), Lymphadenopathy (L) Respiratory: positive: Chest non-tender, No respiratory distress, Other (diminished bilaterally) Cardiovascular: positive: Regular rate & rhythm, No gallop, Systolic murmur, Decreased pulse(s) Peripheral Pulses: positive: 1+ Abdomen: positive: Non-tender, Nml bowel sounds, Hepatomegaly Back: positive: Nml inspection Skin: positive: No rash, Warm, Dry, Pallor Extremities: positive: Pedal edema, Joint swelling Neurologic/Psychiatric: positive: Oriented x3, CN's nml (2-12), Motor nml, Sensation nml, Weakness, Depressed mood/affect Reflexes: Bicep (R): 3+, Bicep (L): 3+ Conclusion/Plan - Problem List (1) Cellulitis of left ankle Conclusion/Plan: - Initial injury of hitting a fence post against her achilles region of her LLE - Imaging shows no osteo - Poor blood sugar control is suspected per patient - Redness, swelling, and increased tenderness on exam- no drainage, but evidence of previous drainage - Wound culture from 10/26 is pending, Blood cultures pending, urinalysis is without infection Plan: Start vanco per pharmacy, monitor for improvement, consider ortho consult, obtain inflammatory markers, hemoglobin A1C in the AM (2) Sleep apnea Conclusion/Plan: - No use of home CPAP - Long standing tobacco dependence - Patient admits to intermittent BLE swelling, abdominal edema Plan: Encourage sleep study, encourage smoking cessation (3) Tobacco dependence Conclusion/Plan: - Tobacco dependence since age 17 - 1-2 PPD - No interest in stopping - Poor wound healing potential, poor surgical candidate Plan: Offer nicotine patch, do not allow patient to leave the nursing unit, encourage cessation, pulmonary rehab (4) Methamphetamine dependence Conclusion/Plan: - Admits to using last on 09/26 - [facility] tox screen is negative for all substances - Several attempts at recovery/rehab programs - Patient states she is interested in going to rehab in the near future to ensure her sobriety Plan: Continue to encourage cessation (5) Obstructive chronic bronchitis without exacerbation Conclusion/Plan: - Current tobacco use (started at age 17), 1-2 PPD as the most likely culprit in this disease - Patient admits to seeing a fire watchman in the past, RAHEEM without a recent sleep study - No long acting inhalers on med list, likely due to continued tobacco dependence - Chronic sinusitis as a consequence, no home oxygen - No recent pneumonia, but admits to chronic sinus infections with typical daily purulent drainage from nasal passages - Productive cough is also reported every AM Plan: Continue to encourage cessation, provide nicotine patch, offer pulmonary rehab upon discharge (6) Medical non-compliance Conclusion/Plan: - Patient admits to avoiding the doctor's office, and not having routine diabetes appointments - Several health issues with little preventative medicine - Is not ready to stop smoking - States that she is willing to go back into rehab in the near future for her meth use Plan: Encourage smoking cessation, offer social work support, treat acute infection (7) Diabetes mellitus type 2, controlled Conclusion/Plan: - Patient takes Metformin at home - Admits to loosing her glucometer at home - Admits to eating too much candy this summer, and being very thirsty lately - States that she thinks her last A1C was around 7% Plan: Start nightly Lantus, SSI, and blood sugar checks, hold metformin as per hospital protocol, check hemoglobin A1C in the AM (8) Multiple sclerosis Conclusion/Plan: - First diagnosed in 2003 - Patient states that she sees Dr. Marcial from [facility] for this condition - Patient states that she has been told that her MS involves her cognition, and word finding abilities - Home meds include zonisamide, copaxone, and gabapentin Plan: Continue home meds, treat acute illness (9) Cervical dysplasia Conclusion/Plan: - Patient admits to several LEEP procedures in the past for her HPV - Also a history of vulvar cancer - Denies bleeding or pain Plan: Treat acute illness (10) Anxiety disorder Conclusion/Plan: - Longstanding disorder - Prescribed Cymbalta at home Plan: Offer social work, encourage smoking cessation, treat acute illness - Lab Results Lab results reviewed: Yes Aayush Bones: 10/29/18 05:00 10/29/18 05:00 Core Measures - Anticipated LOS I expect patient to be DC'd or transferred within 96 hours.: Yes - DVT/VTE - Prophylaxis VTE/DVT Device ordered at admit?: Yes VTE/DVT Prophylaxis med ordered at admit?: Yes - Stroke - Rehab Assessment Rehab services assessment to be ordered?: No Not Ordered - Medical Reason: Contraindicated - AMI - Statin at Admit Aspirin Prescribed on Admit: Yes
[2018-10-28] MEDS ORDERED: VANCOMYCIN PER PHARMACY 100 GM in SODIUM CHLORIDE 0.9% 250 ML IV SCH (16:00)
[2018-10-28] MEDS ORDERED: SODIUM CHLORIDE 0.9% 500 ML ONE (16:48)
[2018-10-28] MEDS ORDERED: VANCOMYCIN 1 GM VIAL ONE (16:48)
[2018-10-28] MEDS ORDERED: MELOXICAM 7.5 MG TABLET PO PRN (17:04)
[2018-10-28] MEDS: SODIUM CHLORIDE 0.9% 1,000 ML IV SCH (17:31)
[2018-10-28] MEDS: SODIUM CHLORIDE FLUSH 0.9% 10 ML SYRINGE IVP SCH (17:32)
[2018-10-28] MEDS: INSULIN ASPART 300 UNIT/3 ML PEN SUBQ SCH ×2 (17:32→21:44)
[2018-10-28] MEDS ORDERED: IPRATROPIUM/ALBUTEROL 3 ML NEB INH PRN (19:00)
[2018-10-28] MEDS: NICOTINE 21 MG PATCH TOP SCH (19:02)
[2018-10-28] MEDS: VANCOMYCIN INJ 1 GM, VANCOMYCIN INJ 500 MG in SODIUM CHLORIDE 0.9% 500 ML IV SCH (19:04)
[2018-10-28 19:46] LABS: MUDS CUTOFF CONCENTRATIONS CUTOFF CONC BELOW:
[2018-10-28 19:48] LABS: BILIRUBIN,URINE NEGATIVE (NEGATIVE); GLUCOSE, URINE (UA) >=1000 mg/dL (NEGATIVE); KETONES,URINE (UA) NEGATIVE (NEGATIVE); LEUKOCYTE ESTERASE, URINE NEGATIVE (NEGATIVE); NITRITE,URINE NEGATIVE (NEGATIVE); OCCULT BLOOD,URINE NEGATIVE (NEGATIVE); PROTEIN,URINE NEGATIVE (NEGATIVE); UROBILINOGEN,URINE 0.2 (NORMAL) E.U./dL (NORMAL)
[2018-10-28 19:56] LABS: CLARITY,URINE CLEAR (CLEAR)
[2018-10-28 20:00] LABS: AMPHETAMINE SCREEN,URINE NEGATIVE (NEGATIVE); BENZODIAZEPINES SCREEN, URINE NEGATIVE (NEGATIVE); COCAINE SCREEN URINE NEGATIVE (NEGATIVE); METHADONE SCREEN, URINE NEGATIVE (NEGATIVE); METHAMPHETAMINES SCREEN, URINE NEGATIVE (NEGATIVE); OPIATE SCREEN, URINE NEGATIVE (NEGATIVE); OXYCODONE SCREEN, URINE NEGATIVE (NEGATIVE); PROPOXYPHENE SCREEN, URINE NEGATIVE (NEGATIVE); TRICYCLIC ANTIDEPRESSANT,URINE NEGATIVE (NEGATIVE)
[2018-10-28 20:16] LABS: BACTERIA,URINE None Seen /HPF (None Seen); RBC,URINE None Seen /HPF (0-5); SQUAMOUS EPITHELIAL CELL,UR FEW Squamous (<= Few)
[2018-10-28] MEDS ORDERED: INSULIN GLARGINE 300 UNIT/3 ML PEN SUBQ SCH (21:00)
[2018-10-28] MEDS ORDERED: MELOXICAM 7.5 MG TABLET PO SCH (21:00)
[2018-10-28] MEDS: DULoxetine 30 MG CAPSULE PO SCH (21:46)
[2018-10-28] MEDS: FAMOTIDINE 20 MG TABLET PO SCH (21:46)
[2018-10-28] MEDS: GABAPENTIN 300 MG CAPSULE PO SCH (21:46)
[2018-10-28] MEDS: ZONISAMIDE 25 MG PO SCH (22:48)
[2018-10-29] MEDS: SENNA 8.6 MG TABLET PO SCH ×4 (00:05→17:47)
[2018-10-29] MEDS: SODIUM CHLORIDE FLUSH 0.9% 10 ML SYRINGE IVP SCH ×4 (01:59→17:49)
[2018-10-29] MEDS: SODIUM CHLORIDE 0.9% 1,000 ML IV SCH ×2 (02:00→05:28)
[2018-10-29 05:18] LABS: BASOPHILS # (AUTO) 0.1 10^3/uL (0.0-0.1); BASOPHILS % (AUTO) 1.2 %; EOSINOPHILS # (AUTO) 0.5 10^3/uL (0.0-0.7); EOSINOPHILS % (AUTO) 6.6 %; HGB - HEMOGLOBIN 12.5 g/dL (12.0-16.0); LYMPHOCYTES # (AUTO) 2.2 10^3/uL (1.5-3.5); LYMPHOCYTES % (AUTO) 32.9 %; MEAN CORPUSCULAR HEMOGLOBIN 29.2 pg (27.0-31.0); MEAN CORPUSCULAR HGB CONC 33.1 g/dL (32.0-36.0); MEAN CORPUSCULAR VOLUME 88.3 fL (81.0-99.0); MEAN PLATELET VOLUME 9.5 fL (7.9-10.8); MONOCYTES # (AUTO) 0.6 10^3/uL (0.0-1.0); MONOCYTES % (AUTO) 8.5 %; NEUTROPHILS # (AUTO) 3.4 10^3/uL (1.5-6.6); NEUTROPHILS % (AUTO) 50.4 %; PLT - PLATELET COUNT 262 10^3/uL (130-450); RED BLOOD COUNT 4.28 10^6/uL (4.20-5.40); RED CELL DISTRIBUTION WIDTH 12.1 % (12.0-15.0); WHITE BLOOD COUNT 6.8 x10^3/uL (4.8-10.8)
[2018-10-29] MEDS: VANCOMYCIN INJ 1 GM, VANCOMYCIN INJ 500 MG in SODIUM CHLORIDE 0.9% 500 ML IV SCH ×2 (05:22→17:50)
[2018-10-29 05:34] LABS: ALBUMIN 3.2 g/dL (3.2-5.5); BILIRUBIN,TOTAL 0.5 mg/dL (0.2-1.0); CALCIUM 8.9 mg/dL (8.5-10.3); CREATININE 0.8 mg/dL (0.4-1.0); CRP - C-REACTIVE PROTEIN 2.3 mg/dL (0-1.0); MAGNESIUM 1.8 mg/dL (1.7-2.8); TOTAL PROTEIN 6.5 g/dL (6.7-8.2)
[2018-10-29] MEDS: SODIUM CHLORIDE FLUSH 0.9% 10 ML SYRINGE IVP PRN ×2 (05:53→18:49)
[2018-10-29] MEDS: ONDANSETRON 4 MG/2 ML VIAL IVP PRN ×2 (05:53→18:48)
[2018-10-29 05:55] LABS: HB2 TOTAL 13.7 g/dL; HEMOGLOBIN A1C 1.13 g/dL; HEMOGLOBIN A1C % 9.7 % (4.6-6.2)
[2018-10-29] MEDS: CETIRIZINE 10 MG TABLET PO SCH (08:23)
[2018-10-29] MEDS: GABAPENTIN 300 MG CAPSULE PO SCH ×2 (08:23→21:21)
[2018-10-29] MEDS: FAMOTIDINE 20 MG TABLET PO SCH ×2 (08:23→21:22)
[2018-10-29] MEDS: CHOLECALCIFEROL 1,000 UNIT TABLET PO SCH (08:23)
[2018-10-29] MEDS: NICOTINE 21 MG PATCH TOP SCH (08:24)
[2018-10-29] MEDS: FLUTICASONE NASAL SPRAY NAS SCH (08:24)
[2018-10-29] MEDS: POLYETHYLENE GLYCOL 3350 17 GM PACKET PO SCH ×2 (08:24→08:30)
[2018-10-29] MEDS: INSULIN ASPART 300 UNIT/3 ML PEN SUBQ SCH ×6 (08:24→21:22)
[2018-10-29] MEDS ORDERED: NICOTINE 21 MG PATCH TOP SCH (15:09)
[2018-10-29] MEDS ORDERED: GLATIRAMER ACETATE 40 MG SUBQ SCH (15:11)
[2018-10-29] MEDS: BACITRACIN OINT TOP SCH ×2 (16:45→18:29)
[2018-10-29] MEDS: METOCLOPRAMIDE 10 MG TABLET PO PRN (19:30)
[2018-10-29] MEDS ORDERED: INSULIN GLARGINE 300 UNIT/3 ML PEN SUBQ SCH (21:00)
[2018-10-29] MEDS: DULoxetine 30 MG CAPSULE PO SCH (21:23)
[2018-10-29] MEDS: ZONISAMIDE 25 MG PO SCH (21:24)
--- NOTE | 2018-10-29 21:39 | PROVIDER PROGRESS NOTE ---
Subjective - Prog Note Date Prog Note Date: 10/29/18 Prog Note Time: 12:00 - Subjective Pt reports feeling: Improved Subjective: Khushboo admits to some improvement in her swelling, pain, and redness to her LLE. She wishes to have it covered during the day and open to air at night. Current Medications - Current Medications Current Medications: Active Medications: Albuterol/Ipratropium (Duoneb) 3 ml INH RTQ4H PRN Bacitracin (Bacitracin) 1 packet TOP BID [facility] Cetirizine HCl (Zyrtec) 10 mg PO DAILY YAW Cholecalciferol (Vitamin D3) 6,000 unit PO DAILY YAW Duloxetine HCl (Cymbalta) 30 mg PO QPM YAW Famotidine (Pepcid) 20 mg PO BID YAW Fluticasone Propionate (Flonase) 2 sprays SB DAILY [facility] Gabapentin (Neurontin) 300 mg PO DAILY YAW Gabapentin (Neurontin) 600 mg PO QPM YAW Vancomycin HCl 1 gm/Vancomycin HCl 500 mg/ Sodium Chloride 500 mls @ 250 mls/hr IV Q12H YAW Insulin Aspart (Novolog) 2 - 10 unit SUBQ 0800,1200,1700,2100 YAW; Protocol Insulin Aspart (Novolog) 5 unit SUBQ TIDWM [facility] Insulin Glargine (Lantus Solostar) 18 unit SUBQ QPM YAW Lorazepam (Ativan) 1 mg PO Q6H PRN Meloxicam (Mobic) 7.5 mg PO BID PRN Metoclopramide HCl (Reglan) 10 mg PO Q6H PRN Nicotine (Nicoderm) 1 patch TOP DAILY [facility] Ondansetron HCl (Zofran Inj) 4 mg IVP Q6HR PRN (Rizatriptan Benzoate [ Rizatriptan] 10 Mg) 1 each PO ONCE PRN (Zonisamide [ Zonisamide] 25 Mg) Tab 4 each PO QPM YAW (Glatiramer Acetate [Copaxone] 40 Mg) Inj 1 each SUBQ SuWeFr@1600 [facility] Polyethylene Glycol (Miralax) 17 gm PO DAILY YAW Temazepam (Restoril) 15 mg PO QPM PRN HOME meds: Metformin HCl 1,000 mg PO BIDWM 09/25/14 Cetirizine [ZyrTEC] 10 mg PO DAILY 08/12/16 Zonisamide 100 mg PO QPM 08/24/18 Albuterol Sulfate [Albuterol Sulfate Hfa] 2 puffs INH Q4H PRN 10/28/18 Cholecalciferol (Vitamin D3) [Vitamin D3] 6,000 units PO DAILY 10/28/18 Duloxetine HCl 30 mg PO QPM 10/28/18 Fluticasone [Flonase] 2 spray SB DAILY 10/28/18 Gabapentin 300 mg PO DAILY 10/28/18 Gabapentin 600 mg PO QPM 10/28/18 Glatiramer Acetate [Copaxone] 40 mg SUBQ SUWEFR@0900 10/28/18 Meloxicam 7.5 mg PO BID 10/28/18 Promethazine HCl 6.25 mg PO Q6H PRN 10/28/18 Rizatriptan Benzoate [Rizatriptan] 10 mg PO ONCE PRN 10/28/18 Objective - Vital Signs/Intake & Output Reviewed Vital Signs: Yes Vital Signs: Vital Signs x48h Temp Pulse Resp BP BP Pulse Ox 10/29/18 18:56 37 C 75 16 146/77 H 97 10/29/18 16:00 36.8 C 69 18 149/74 H 100 Intake & Output: Intake & Output 10/26/18 10/27/18 10/28/18 10/29/18 23:59 23:59 23:59 23:59 Intake Total 1500 3294.333 Output Total 400 1850 Balance 1100 1444.333 - Objective General Appearance: positive: No acute distress, Alert Eyes Bilateral: positive: PERRL, No lid inflammation ENT: positive: Pharyngeal erythema, Dry mucous membranes Neck: positive: No JVD, Trachea midline, Lymphadenopathy (R), Lymphadenopathy (L) Respiratory: positive: Chest non-tender, No respiratory distress, Breath sounds nml Cardiovascular: positive: Regular rate & rhythm, No gallop, Systolic murmur, Decreased pulse(s) Peripheral Pulses: 1+ Radial (R), 1+ Radial (L) Abdomen: positive: Non-tender, Nml bowel sounds, Hepatomegaly Back: positive: Nml inspection Skin: positive: Color nml, No rash, Warm, Dry Extremities: positive: Full ROM, Pedal edema (LLE greater than RLE), Joint swelling, Other (left achilles area with less redness surrounding wound) Neurologic/Psychiatric: positive: Oriented x3, CN's nml (2-12), Motor nml, Sensation nml, Mood/affect nml Reflexes: Bicep (R): 3+, Bicep (L): 3+ - Lab Results Fish Bones: 10/29/18 05:00 10/29/18 05:00 Other Labs: Lab Results x24hrs 10/29/18 10/29/18 10/29/18 Range/Units 20:28 16:44 11:07 WBC (4.8-10.8) x10^3/uL RBC (4.20-5.40) 10^6/uL Hgb (12.0-16.0) g/dL Hct (37.0-47.0) % MCV (81.0-99.0) fL MCH (27.0-31.0) pg MCHC (32.0-36.0) g/dL RDW (12.0-15.0) % Plt Count (130-450) 10^3/uL MPV (7.9-10.8) fL Neut # (Auto) (1.5-6.6) 10^3/uL Lymph # (Auto) (1.5-3.5) 10^3/uL [place]usk # (Auto) (0.0-1.0) 10^3/uL Eos # (Auto) (0.0-0.7) 10^3/uL Baso # (Auto) (0.0-0.1) 10^3/uL Absolute Nucleated RBC x10^3/uL Nucleated RBC % /100WBC Sodium (135-145) mmol/L Potassium (3.5-5.0) mmol/L Chloride (101-111) mmol/L Carbon Dioxide (21-32) mmol/L Anion Gap (6-13) BUN (6-20) mg/dL Creatinine (0.4-1.0) mg/dL Estimated GFR (MDRD) (>89) Glucose (70-100) mg/dL POC Whole Bld Glucose 110 H 278 H 152 H (70 - 100) mg/dL Glycated Hemoglobin (4.6-6.2) % Estim Average Glucose (70-100) Lactic Acid (0.5-2.2) mmol/L Calcium (8.5-10.3) mg/dL Magnesium (1.7-2.8) mg/dL Total Bilirubin (0.2-1.0) mg/dL AST (10-42) IU/L ALT (10-60) IU/L Alkaline Phosphatase (42-121) IU/L C-Reactive Protein (0-1.0) mg/dL Total Protein (6.7-8.2) g/dL Albumin (3.2-5.5) g/dL Globulin (2.1-4.2) g/dL Albumin/Globulin Ratio (1.0-2.2) 10/29/18 10/29/18 10/29/18 Range/Units 07:27 05:00 05:00 WBC (4.8-10.8) x10^3/uL RBC (4.20-5.40) 10^6/uL Hgb (12.0-16.0) g/dL Hct (37.0-47.0) % MCV (81.0-99.0) fL MCH (27.0-31.0) pg MCHC (32.0-36.0) g/dL RDW (12.0-15.0) % Plt Count (130-450) 10^3/uL MPV (7.9-10.8) fL Neut # (Auto) (1.5-6.6) 10^3/uL Lymph # (Auto) (1.5-3.5) 10^3/uL [place] # (Auto) (0.0-1.0) 10^3/uL Eos # (Auto) (0.0-0.7) 10^3/uL Baso # (Auto) (0.0-0.1) 10^3/uL Absolute Nucleated RBC x10^3/uL Nucleated RBC % /100WBC Sodium 140 (135-145) mmol/L Potassium 4.4 (3.5-5.0) mmol/L Chloride 105 (101-111) mmol/L Carbon Dioxide 26 (21-32) mmol/L Anion Gap 9.0 (6-13) BUN 13 (6-20) mg/dL Creatinine 0.8 (0.4-1.0) mg/dL Estimated GFR (MDRD) 76 L (>89) Glucose 190 H (70-100) mg/dL POC Whole Bld Glucose 232 H (70 - 100) mg/dL Glycated Hemoglobin (4.6-6.2) % Estim Average Glucose (70-100) Lactic Acid 1.5 (0.5-2.2) mmol/L Calcium 8.9 (8.5-10.3) mg/dL Magnesium 1.8 (1.7-2.8) mg/dL Total Bilirubin 0.5 (0.2-1.0) mg/dL AST 15 (10-42) IU/L ALT 12 (10-60) IU/L Alkaline Phosphatase 72 (42-121) IU/L C-Reactive Protein 2.3 H (0-1.0) mg/dL Total Protein 6.5 L (6.7-8.2) g/dL Albumin 3.2 (3.2-5.5) g/dL Globulin 3.3 (2.1-4.2) g/dL Albumin/Globulin Ratio 1.0 (1.0-2.2) 10/29/18 10/29/18 Range/Units 05:00 05:00 WBC 6.8 (4.8-10.8) x10^3/uL RBC 4.28 (4.20-5.40) 10^6/uL Hgb 12.5 (12.0-16.0) g/dL Hct 37.8 (37.0-47.0) % MCV 88.3 (81.0-99.0) fL MCH 29.2 (27.0-31.0) pg MCHC 33.1 (32.0-36.0) g/dL RDW 12.1 (12.0-15.0) % Plt Count 262 (130-450) 10^3/uL MPV 9.5 (7.9-10.8) fL Neut # (Auto) 3.4 (1.5-6.6) 10^3/uL Lymph # (Auto) 2.2 (1.5-3.5) 10^3/uL [place] # (Auto) 0.6 (0.0-1.0) 10^3/uL Eos # (Auto) 0.5 (0.0-0.7) 10^3/uL Baso # (Auto) 0.1 (0.0-0.1) 10^3/uL Absolute Nucleated RBC 0.00 x10^3/uL Nucleated RBC % 0.0 /100WBC Sodium (135-145) mmol/L Potassium (3.5-5.0) mmol/L Chloride (101-111) mmol/L Carbon Dioxide (21-32) mmol/L Anion Gap (6-13) BUN (6-20) mg/dL Creatinine (0.4-1.0) mg/dL Estimated GFR (MDRD) (>89) Glucose (70-100) mg/dL POC Whole Bld Glucose (70 - 100) mg/dL Glycated Hemoglobin 9.7 H (4.6-6.2) % Estim Average Glucose 232 H (70-100) Lactic Acid (0.5-2.2) mmol/L Calcium (8.5-10.3) mg/dL Magnesium (1.7-2.8) mg/dL Total Bilirubin (0.2-1.0) mg/dL AST (10-42) IU/L ALT (10-60) IU/L Alkaline Phosphatase (42-121) IU/L C-Reactive Protein (0-1.0) mg/dL Total Protein (6.7-8.2) g/dL Albumin (3.2-5.5) g/dL Globulin (2.1-4.2) g/dL Albumin/Globulin Ratio (1.0-2.2) ABX Reporting Has patient been on IV antibiotics over the past 48 hours?: Yes Assessment/Plan - Problem List (1) Cellulitis of left ankle Impression: - Initial injury of hitting a fence post against her achilles region of her LLE - Imaging shows no osteo - Poor blood sugar control is suspected per patient, HgA1C is elevated at 9.7% - Redness, swelling, and increased tenderness on exam- no drainage, but evidence of previous drainage - Wound culture from 10/26 is pending, Blood cultures pending, urinalysis is without infection - Apply bacitracin BID with bandage to keep moist and encourage drainage Plan: Continue vanco per pharmacy, monitor for improvement, consider ortho consult, trend inflammatory markers (2) Diabetes mellitus type 2, uncontrolled, with complications Impression: - Patient takes Metformin at home - Admits to loosing her glucometer at home - Admits to eating too much candy this summer, and being very thirsty lately - States that she thinks her last A1C was around 7% - Today the patient has an elevated hemoglobin A1C which is 9.7%, showing poor control - Blood sugars today have ranged from 152-278 - Increased insulin dosing while inpatient, and will recommend daily lantus to go home with on discharge Plan: Continue nightly Lantus at increased dose, SSI with additional meal time coverage, and blood sugar checks, hold metformin as per hospital protocol, nutrition consulted (3) Tobacco dependence Impression: - Tobacco dependence since age 17 - 1-2 PPD - No interest in stopping - Poor wound healing potential, poor surgical candidate - Patient requested to leave the hospital to "go outside" today, but I let her know she needs to be all in or all out; and may risk being discharged if she leaves - Patient is agreeable to staying in her room to allow for full treatment - One time order for nicotine was given since she lost her earlier patch in the shower today Plan: Offer nicotine patch, do not allow patient to leave the nursing unit, encourage cessation, pulmonary rehab (4) Methamphetamine dependence Impression: - Admits to using last on 09/26 - MUDDs tox screen is negative for all substances - Several attempts at recovery/rehab programs - Patient states she is interested in going to rehab in the near future to ensure her sobriety Plan: Continue to encourage cessation (5) Obstructive chronic bronchitis without exacerbation Impression: - Current tobacco use (started at age 17), 1-2 PPD as the most likely culprit in this disease - Patient admits to seeing a small business consultant in the past, RAHEEM without a recent sleep study - No long acting inhalers on med list, likely due to continued tobacco dependence - Chronic sinusitis as a consequence, no home oxygen - No recent pneumonia, but admits to chronic sinus infections with typical daily purulent drainage from nasal passages - Productive cough is also reported every AM Plan: Continue to encourage cessation, provide nicotine patch, offer pulmonary rehab upon discharge (6) Medical non-compliance Impression: - Patient admits to avoiding the doctor's office, and not having routine diabetes appointments - Several health issues with little preventative medicine - Is not ready to stop smoking - States that she is willing to go back into rehab in the near future for her meth use Plan: Encourage smoking cessation, offer social work support, treat acute infection (7) Multiple sclerosis Impression: - First diagnosed in 2003 - Patient states that she sees Dr. 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 Elvira Hicks next week, which has been scheduled for a while per patient - Also a history of vulvar cancer - Denies bleeding or pain Plan: Treat acute illness (9) Anxiety disorder Impression: - Longstanding disorder - Prescribed Cymbalta at home - Anxiety seems to be manageable today - Family here to visit, ex- and 2 grown sons Plan: Offer social work, encourage smoking cessation, treat acute illness
[2018-10-30] MEDS: SODIUM CHLORIDE FLUSH 0.9% 10 ML SYRINGE IVP SCH (00:03)
[2018-10-30] MEDS: METOCLOPRAMIDE 10 MG TABLET PO PRN (04:16)
[2018-10-30] MEDS: VANCOMYCIN INJ 1 GM, VANCOMYCIN INJ 500 MG in SODIUM CHLORIDE 0.9% 500 ML IV SCH (05:09)
[2018-10-30] MEDS: SODIUM CHLORIDE FLUSH 0.9% 10 ML SYRINGE IVP PRN (05:11)
[2018-10-30 05:43] LABS: VANCOMYCIN,TROUGH 11.9 ug/mL (10.0-20.0)
[2018-10-30] MEDS: INSULIN ASPART 300 UNIT/3 ML PEN SUBQ SCH ×4 (08:13→12:39)
[2018-10-30] MEDS: CHOLECALCIFEROL 1,000 UNIT TABLET PO SCH (08:14)
[2018-10-30] MEDS: FAMOTIDINE 20 MG TABLET PO SCH (08:15)
[2018-10-30] MEDS: GABAPENTIN 300 MG CAPSULE PO SCH (08:15)
[2018-10-30] MEDS: CETIRIZINE 10 MG TABLET PO SCH (08:15)
[2018-10-30] MEDS: POLYETHYLENE GLYCOL 3350 17 GM PACKET PO SCH ×2 (08:16→08:20)
[2018-10-30] MEDS: NICOTINE 21 MG PATCH TOP SCH (08:18)
[2018-10-30] MEDS: FLUTICASONE NASAL SPRAY NAS SCH (08:18)
[2018-10-30] MEDS: BACITRACIN OINT TOP SCH (08:20)
--- NOTE | 2018-10-30 12:32 | Discharge Plan ---
Discharge Plan Problem Reviewed?: Yes Disposition: Home, Self Care Condition: Good Prescriptions: Blood-Glucose Meter [Glucometer] 1 each QID #1 each Hydrocolloid Dressing [Advanced Healing Bandage] 1 each TP DAILY #20 bandage Insulin Glargine [Lantus Solostar] 15 unit SQ DAILY #1 pen Lancets/Blood Glucose Strips [Fora [id number] Strp-Lnct] 1 each QID #120 combo..pkg Levofloxacin [Levaquin] 750 mg PO DAILY #12 tablet Pen Needle, Diabetic [Pen [place]] 1 each QID #120 dis.needle Saccharomyces Boulardii [Florastor] 250 mg PO BID #60 capsule Diet: Diabetic Activity Restrictions: Activity as Tolerated Shower Restrictions: No Driving Restrictions: No Weight Bearing: Other (Use a surgical boot, per ortho-surgery) Instruction Topics: Metoclopramide injection, Vancomycin injection, Insulin Aspart injection, Insulin Glargine injection Health Concerns: Achilles tendon wound Uncontrolled diabetes with an elevated hemoglobin A1C of 9.7% Tobacco dependence Vascular disease related to poor (slow) healing Stress & anxiety Upcoming LEEP procedure for cervical dysplasia Plan of Treatment: Continue antibiotics at home for the next 12 days (daily dose) Take a probiotic for at least one month after stopping this antibiotic to restore the healthy gut bacteria Attend pulmonary rehab in attempts to stop smoking for improved wound healing See your Primary care provider often for diabetes management, and/or come to our [facility] for further support New glucose monitor supplies are waiting at the pharmacy Start daily Lantus injections (long acting insulin) to promote wound healing intended to take in addition to your Metformin See the [facility] wound clinic for follow up left heel wound care Care Goals: Prevent hospital stays/ ED visits Gain better control of your blood sugars Undergo scheduled LEEP procedure Make your best attempt at smoking cessation Your Primary care provider can make a vascular referral if indicated for your suspected leg vascular disease Assessment: Khushboo was seen by our music historian, orthopedic surgery, and public health educator and was sent home on antibiotics to be continued for the next 12 days. She was agreeable to returning home and her wound has less pain when walking, much less swelling, and her redness is now localized to just around the wound edges. Orthopedic surgery did not recommend any procedures or further imaging at this time. Additional Instructions or Follow Up instructions: I spoke to Dr. Sparks at [facility] who will advocate for your upcoming LEEP to stay on schedule, but anesthesia may opt to delay this depending on your blood sugars when you arrive on . Follow-Up Care: [facility] - Pulmonary, [facility] - Wound/Ostomy, [facility] - Diabetes Ed No Smoking: If you smoke, Please STOP! Call for help.
[2018-10-30] MEDS: LORazepam 1 MG TABLET PO PRN ×2 (12:35→18:03)
[2018-10-30] MEDS ORDERED: levoFLOXacin 250 MG TABLET PO SCH (13:00)
--- NOTE | 2018-10-30 15:41 | DISCHARGE SUMMARY ---
Discharge Summary Admit Date: 10/28/18 Discharge Date: 10/30/18 Discharging Provider: JC White Primary Care Provider: Daniel Taylor Code Status: Attempt Resuscitation Condition at Discharge: Good Discharge Disposition: 01 Home, Self Care - DIAGNOSES Admission Diagnoses: Cellulitis of left ankle Sleep apnea, obstructive Tobacco dependence Methamphetamine dependence Chronic bronchitis with COPD (chronic obstructive pulmonary disease) Medical non-compliance Diabetes mellitus type 2, controlled Multiple sclerosis Cervical dysplasia Anxiety disorder Discharge Diagnoses with Status of Each Condition: Cellulitis of left ankle- improved, continue on oral antibiotics at home, see wound care at the [facility], no orthopedic interventions are indicated Diabetes mellitus type 2, uncontrolled- Elevated hemoglobin A1C was 9.7%, added nightly Lantus, to be taken with Metformin, also new glucometer and supplies sent to the pharmacy. Follow up with diabetes nurse educator at the [facility] Tobacco dependence- ongoing, requested to go outside while inpatient, patient advised to make her best effort to stop given her current infection and elevated sugars Methamphetamine dependence- drug screen was negative for ALL substances, patient mentioned that she would like recovery rehab again in the near future and feels hopeless about her role in raising her nephews as their father gets inappropriately involved Chronic bronchitis with COPD (chronic obstructive pulmonary disease)- chronic, encouraged smoking cessation, but patient is not committed at this time, pulmonary rehab consult through the [facility] was made Medical non-compliance- ongoing, patient not willing to attempt smoking cessation. Several referrals made, including pulmonary rehab, [facility] for diabetes education, and wound care through the [facility] Multiple sclerosis- progressive, stable Cervical dysplasia- Upcoming LEEP procedure, may be delayed given elevated blood sugars Anxiety disorder- chronic, ongoing - HPI History of Present Illness: Khushboo Murray is an old appearing 52-year old white female with a past medical history of hypertension, multiple sclerosis affecting cognition/word finding, neurogenic bladder, tobacco dependence since age 17, methamphetamine dependence, COPD, RAHEEM without the use of a home CPAP, anxiety disorder, cervical dysplasia- high grade requiring several LEEP procedures, HPV, ganglion cyst of right hand, chronic pain syndrome, depression, anxiety, lumbago with sciatica, muscles spasms, chronic sinusitis, vitamin B12 deficiency, vitamin D deficiency, hepatitis C, vulvar cancer, migraines, and difficult social living situation. The patient presented with increasing redness, pain, swelling to her left posterior leg, near the achilles tendon. She admits to scraped her leg against a fence post about a week ago. She had a wound which appeared that he was getting infected so she saw Dr. Taylor, who prescribed her clindamycin. A wound culture was obtained and is pending from 10/26/2018. She has been taking clindamycin as prescribed, however, the redness, pain, and swelling to her LLE has been increasing, which is now around 4 inches on all sides of the injury greater than when she first saw her provider in the clinic. She is scheduled to have a LEEP procedure at [facility] with Dr. Benita Hicks next week, and worries that this infection will prevent her from getting that done. She states that she has noticed some chills, increased thirst, and decreased appetite over the past 24 hours, but cannot check her blood sugars lately since she lost her glucometer. Her labs are insignificant without an elevated WBC count and without electrolyte abnormalities. She states that she used meth last on September 26, 2018 and her [facility] tox screen matches this claim with being negative for all substances. A left ankle x-ray shows an achilles bone spur without evidence of osteomyelitis. Vital signs were normal and she required no oxygen. She will be admitted to observation for IV treatment for at least one night of stay. - CONSULTS | PROCEDURES Consultations: Orthopedic surgery- Dr. Mayer, Wound care consult Procedures: Per Dr. Mayer: "Achilles Wound. No evidence of fluctuance or deep infection. Minimal surrounding cellulitis. Improved by report. Recommend Xeroform dressing, dry cotton gauze, soft roll, Case, walking boot. Will defer to wound care clinic for special wound dressing or care as needed. I do not see indication for orthopedic surgical intervention at this time". - HOSPITAL COURSE Hospital Course: (1) Cellulitis of left ankle- Initial injury of hitting a fence post against her achilles region of her LLE - Imaging shows no osteo - Poor blood sugar control is suspected per patient, HgA1C is elevated at 9.7% - Redness, swelling, and increased tenderness on exam- no drainage, but evidence of previous drainage - Wound culture from 10/26 is pending, Blood cultures pending, urinalysis is witho ut infection -Continue PO Levofloxacin at home, follow up with wound clinic, and PCP (2) Diabetes mellitus type 2, uncontrolled, with complications - Patient takes Metformin at home, but admitted to noncompliance given her social situation and has not been watching her sweets - Admits to loosing her glucometer at home- ordered all new supplies upon discharge - Admits to eating too much candy this summer, and being very thirsty lately - Elevated hemoglobin A1C which is 9.7%, showing poor control - Blood sugars have ranged from 152-278 - Increased insulin dosing while inpatient, daily lantus to go home with on discharge of 15 units nightly - Consult made to outpatient diabetic nurse educator (3) Tobacco dependence- Tobacco dependence since age 17 - 1-2 PPD - No interest in stopping and requested to leave the hospital to smoke while inpatient - Poor wound healing potential, poor surgical candidate - Encouraged cessation, pulmonary rehab through the [facility] has been ordered upon discharge (4) Methamphetamine dependence- Admits to using last on 09/26 - [facility] tox screen is negative for all substances - Several attempts at recovery/rehab programs - Patient states she is interested in going to rehab in the near future to ensure her sobriety (5) Obstructive chronic bronchitis without exacerbation- Current tobacco use (started at age 17), 1-2 PPD as the most likely culprit in this disease - Patient admits to seeing a sketch artist in the past, RAHEEM without a recent sl eep study - No long acting inhalers on med list, likely due to continued tobacco dependence - Chronic sinusitis as a consequence, no home oxygen - No recent pneumonia, but admits to chronic sinus infections with typical daily purulent drainage from nasal passages - Productive cough is also reported every AM (6) Medical non-compliance- Patient admits to avoiding the doctor's office, and not having routine diabetes appointments - Several health issues with little preventative medicine - Is not ready to stop smoking - States that she is willing to go back into rehab in the near future for her meth use - Encouraged smoking cessation, offered social work support, treating acute infection (7) Multiple sclerosis- First diagnosed in 2003 - Patient states that she sees Dr. Marcial from [facility] for this condition - Patient states that she has been told that her MS involves her cognition, and word finding abilities - Home meds include zonisamide, copaxone, and gabapentin (8) Cervical dysplasia- Patient admits to several LEEP procedures in the past for her HPV - Upcoming LEEP at [facility] with Dr. Elvira Hicks next week, which has been scheduled for a while per patient - Also a history of vulvar cancer - Denies bleeding or pain (9) Anxiety disorder- Longstanding disorder - Prescribed Cymbalta at home - Anxiety seems to be manageable today - Family here to visit, ex- and 2 grown sons Disposition: The patient was very anxious about returning home and was medically stable, so sent home on PO Levofloxacin. A call to Dr. Sparks was made regarding her upcoming LEEP procedure. - ALLERGIES Allergies/Adverse Reactions: Allergies Allergy/AdvReac Type Severity Reaction Status Date / Time acetaminophen [From Vicodin] AdvReac Unknown Itching Verified 08/24/18 22:12 cephalexin AdvReac Unknown Respiratory Verified 08/24/18 22:12 ciprofloxacin [From Cipro] AdvReac Unknown Nausea Verified 08/24/18 22:12 codeine AdvReac Unknown Hives Verified 08/24/18 22:12 hydrocodone bitartrate * AdvReac Unknown Itching Verified 08/24/18 22:12 [From Vicodin] Penicillins AdvReac Unknown Itching Verified 08/24/18 22:12 propoxyphene HCl * AdvReac Unknown Hives Verified 08/24/18 22:12 [From Darvon] doxycycline AdvReac Unknown Verified 08/24/18 22:12 sulfamethoxazole AdvReac Unknown Verified 08/24/18 22:12 [From Bactrim] trimethoprim [From Bactrim] AdvReac Unknown Verified 08/24/18 22:12 - MEDICATIONS Home Medications: Ambulatory Orders Medication Instructions Recorded Confirmed Metformin HCl 1,000 mg PO BIDWM 09/25/14 10/28/18 Cetirizine [ZyrTEC] 10 mg PO DAILY 08/12/16 10/28/18 Zonisamide 100 mg PO QPM 08/24/18 10/28/18 Albuterol Sulfate [Albuterol 2 puffs INH Q4H PRN 10/28/18 10/28/18 Sulfate Hfa] Cholecalciferol (Vitamin D3) 6,000 units PO DAILY 10/28/18 10/28/18 [Vitamin D3] Duloxetine HCl 30 mg PO QPM 10/28/18 10/28/18 Fluticasone [Flonase] 2 spray SB DAILY 10/28/18 10/28/18 Gabapentin 300 mg PO DAILY 10/28/18 10/28/18 Gabapentin 600 mg PO QPM 10/28/18 10/28/18 Glatiramer Acetate [Copaxone] 40 mg SUBQ SUWEFR@0900 10/28/18 10/28/18 Meloxicam 7.5 mg PO BID 10/28/18 10/28/18 Promethazine HCl 6.25 mg PO Q6H PRN 10/28/18 10/28/18 Rizatriptan Benzoate [Rizatriptan] 10 mg PO ONCE PRN 10/28/18 10/28/18 Blood-Glucose Meter [Glucometer] 1 each QID #1 each 10/30/18 Hydrocolloid Dressing [Advanced 1 each TP DAILY #20 bandage 10/30/18 Healing Bandage] Insulin Glargine [Lantus Solostar] 15 unit SQ DAILY #1 pen 10/30/18 Lancets/Blood Glucose Strips [Fora 1 each QID #120 combo..pkg 10/30/18 [id number] Strp-Lnct] Levofloxacin [Levaquin] 750 mg PO DAILY #12 tablet 10/30/18 Pen Needle, Diabetic [Pen [place]] 1 each QID #120 dis.needle 10/30/18 Saccharomyces Boulardii [Florastor] 250 mg PO BID #60 capsule 10/30/18 - PHYSICAL EXAM AT DISCHARGE General Appearance: positive: No acute distress, Alert, Anxious Eyes Bilateral: positive: PERRL ENT: positive: Pharynx nml, No signs of dehydration Neck: positive: Thyroid nml, No JVD, Trachea midline Respiratory: positive: Chest non-tender, No respiratory distress, Breath sounds nml Cardiovascular: positive: Regular rate & rhythm, No gallop, Systolic murmur, Decreased pulse(s) Peripheral Pulses: positive: 1+ Abdomen: positive: Nml bowel sounds Back: positive: Nml inspection Skin: positive: No rash, Warm, Dry, Pallor Extremities: positive: Pedal edema, Joint swelling (LLE- ankle), Other (right hand contractures) Neurologic/Psychiatric: positive: Oriented x3, CN's nml (2-12), Motor nml, Sensation nml, Mood/affect nml Reflexes: Bicep (R): 3+, Bicep (L): 3+ - LABS Result Diagrams: 10/29/18 05:00 10/29/18 05:00 - DIAGNOSTIC IMAGING Diagnostic Imaging Results: Final report reviewed Diagnostic Imaging Results Comments: EXAM: LEFT ANKLE RADIOGRAPHY EXAM DATE: 10/28/2018 11:43 IMPRESSION: 1. No obvious radiographic changes of osteomyelitis. 2. Tiny density projecting over the plantar midfoot subcutaneous tissues, cannot exclude foreign body. - FOLLOW UP Follow Up: Disposition: Home Prescriptions: Blood-Glucose Meter [Glucometer] 1 each QID #1 each Hydrocolloid Dressing [Advanced Healing Bandage] 1 each TP DAILY #20 bandage Insulin Glargine [Lantus Solostar] 15 unit SQ DAILY #1 pen Lancets/Blood Glucose Strips [Fora [id number] Strp-Lnct] 1 each QID #120 combo..pkg Levofloxacin [Levaquin] 750 mg PO DAILY #12 tablet Pen Needle, Diabetic [Pen [place]] 1 each MC QID #120 dis.needle Saccharomyces Boulardii [Florastor] 250 mg PO BID #60 capsule Weight Bearing: Other (Use a surgical boot, per ortho-surgery) Instruction Topics: Metoclopramide injection, Vancomycin injection, Insulin Aspart injection, Insulin Glargine injection Health Concerns: Achilles tendon wound Uncontrolled diabetes with an elevated hemoglobin A1C of 9.7% Tobacco dependence Vascular disease related to poor (slow) healing Stress & anxiety Upcoming LEEP procedure for cervical dysplasia Plan of Treatment: Continue antibiotics at home for the next 12 days (daily dose) Take a probiotic for at least one month after stopping this antibiotic to restore the healthy gut bacteria Attend pulmonary rehab in attempts to stop smoking for improved wound healing See your Primary care provider often for diabetes management, and/or come to our [facility] for further support New glucose monitor supplies are waiting at the pharmacy Start daily Lantus injections (long acting insulin) to promote wound healing intended to take in addition to your Metformin See the [facility] for follow up left heel wound care Care Goals: Prevent hospital stays/ ED visits Gain better control of your blood sugars Undergo scheduled LEEP procedure Make your best attempt at smoking cessation Your Primary care provider can make a vascular referral if indicated for your suspected leg vascular disease Assessment: Khushboo was seen by our ophthalmic dispenser, orthopedic surgery, and inclusion special educator and was sent home on antibiotics to be continued for the next 12 days. She was agreeable to returning home and her wound has less pain when walking, much less swelling, and her redness is now localized to just around the wound edges. Orthopedic surgery did not recommend any procedures or further imaging at this time. Additional Instructions or Follow Up instructions: I spoke to Dr. Sparks at [facility] who will advocate for your upcoming LEEP to stay on schedule, but anesthesia may opt to delay this dep ending on your blood sugars when you arrive on . Follow-Up Care: [facility] - Pulmonary, [facility] - Wound/Ostomy, [facility] - Diabetes Ed - TIME SPENT Time Spent in Discharge (Minutes): 65
[2018-10-30 15:47] VITALS: BP 151/95
--- NOTE | 2018-10-30 16:44 | CONSULTATION NOTE ---
Referring Provider Name of Referring Provider:: Carol Ann GREENE Chief Complaint - Chief Complaint Chief Complaint: Asked to evaluate for Achilles wound Left History of Present Illness - History of Present Illness HPI Comment/Other: Patient reportedly had a metal portion of the fence hit the back of her Left Achilles area. She went home cleaned off a pair of instruments with alcohol and cut away a piece of skin and then had dressed the area and put an ointment on it. She had presented with reported cellulitis redness and a "slow to heal" Achilles woundOrthopedic consultation was sought for concern of need for intervention surgically History - Past Medical History Cardiovascular: reports: Hypertension, High cholesterol, Coronary artery disease, Peripheral Vascular Disease, Murmur Respiratory: reports: COPD, Emphysema, Pneumonia, Sleep apnea Neuro: reports: Headaches, Migraines, Peripheral neuropathy, Multiple sclerosis (since 2003), Other (cognitive impairment, word finding difficulties d/t MS) Endocrine/Autoimmune: reports: Type 2 diabetes GI: reports: GERD, Hepatitis (hep C) CHANNEL PROCESS SUPERVISOR: reports: Other (Vulvar cancer, +HPV) : reports: Retention, Incontinence, Nocturia, Frequency HEENT: reports: Chronic vision loss, Chronic sinusitis, Chronic hearing loss Psych: reports: Depression, Anxiety, Panic attacks, Post traumatic stress disorder Musculoskeletal: reports: Osteoarthritis, Rheumatoid arthritis Derm: reports: None, Other (Problems with hair/nails growing) MRSA Hx?: No Other Past Medical History: was told pt has hep C, HPV - Past Surgical History General: reports: Colonoscopy, EGD Ortho: reports: Carpal Tunnel surgery /CHANNEL PROCESS SUPERVISOR: reports: LEEP (Cervical surgery), Other (vulvar cancer) HEENT: reports: Tonsil/Adenoidectomy Derm: reports: Skin grafts, Debridement (Status post 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 She has 4 grown children, 2 boys, 2 girls all of whom she is close to. [place]. She has had substance abuse problems for most of her adult life starting in her 20's including heroin, and methamphetamines. She has also been a life long cigarette smoker from age 17-currently ~ 1-2 PPD. She has never been an alcoholic. She has been through several recovery treatment programs in the past and would like to go again in the near future. She wishes to be a FULL code. - Substance History Use: Uses substance without health or social issues: Tobacco Use Issues: Anxiety Disorder, Mood Disorder - POLST Patient has POLST: No Meds/Allgy - Home Medications Home Medications: Ambulatory Orders Medication Instructions Recorded Confirmed RX: Metformin HCl 1,000 mg PO BIDWM 09/25/14 10/28/18 RX: Cetirizine [ZyrTEC] 10 mg PO DAILY 08/12/16 10/28/18 RX: Zonisamide 100 mg PO QPM 08/24/18 10/28/18 RX: Albuterol Sulfate [Albuterol 2 puffs INH Q4H PRN 10/28/18 10/28/18 Sulfate Hfa] RX: Cholecalciferol (Vitamin D3) 6,000 units PO DAILY 10/28/18 10/28/18 [Vitamin D3] RX: Duloxetine HCl 30 mg PO QPM 10/28/18 10/28/18 RX: Fluticasone [Flonase] 2 spray SB DAILY 10/28/18 10/28/18 RX: Gabapentin 300 mg PO DAILY 10/28/18 10/28/18 RX: Gabapentin 600 mg PO QPM 10/28/18 10/28/18 RX: Glatiramer Acetate [Copaxone] 40 mg SUBQ SUWEFR@0900 10/28/18 10/28/18 RX: Meloxicam 7.5 mg PO BID 10/28/18 10/28/18 RX: Promethazine HCl 6.25 mg PO Q6H PRN 10/28/18 10/28/18 RX: Rizatriptan Benzoate 10 mg PO ONCE PRN 10/28/18 10/28/18 [Rizatriptan] Insulin Glargine [Lantus Solostar] 15 unit SQ DAILY #1 pen 10/30/18 RX: Blood-Glucose Meter 1 each MC QID #1 each 10/30/18 [Glucometer] RX: Hydrocolloid Dressing 1 each TP DAILY #20 bandage 10/30/18 [Advanced Healing Bandage] RX: Lancets/Blood Glucose Strips 1 each QID #120 combo..pkg 10/30/18 [Fora [id number] Strp-Lnct] RX: Levofloxacin [Levaquin] 750 mg PO DAILY #12 tablet 10/30/18 RX: Pen Needle, Diabetic [Pen 1 each QID #120 dis.needle 10/30/18 [place]] Saccharomyces Boulardii [Florastor] 250 mg PO BID #60 capsule 10/30/18 - Allergies Allergies/Adverse Reactions: Allergies Allergy/AdvReac Type Severity Reaction Status Date / Time acetaminophen [From Vicodin] AdvReac Unknown Itching Verified 08/24/18 22:12 cephalexin AdvReac Unknown Respiratory Verified 08/24/18 22:12 ciprofloxacin [From Cipro] AdvReac Unknown Nausea Verified 08/24/18 22:12 codeine AdvReac Unknown Hives Verified 08/24/18 22:12 hydrocodone bitartrate * AdvReac Unknown Itching Verified 08/24/18 22:12 [From Vicodin] Penicillins AdvReac Unknown Itching Verified 08/24/18 22:12 propoxyphene HCl * AdvReac Unknown Hives Verified 08/24/18 22:12 [From Darvon] doxycycline AdvReac Unknown Verified 08/24/18 22:12 sulfamethoxazole AdvReac Unknown Verified 08/24/18 22:12 [From Bactrim] trimethoprim [From Bactrim] AdvReac Unknown Verified 08/24/18 22:12 Exam - Vital Signs Vital Signs: Vital Signs x48h Temp Pulse Pulse Resp BP BP Pulse Ox 10/30/18 15:45 36.8 C 66 16 151/95 H 98 10/30/18 13:00 36.9 C 72 20 145/83 H 99 10/30/18 09:50 65 18 - Physical Exam Comments/Other: Patient's injured extremity shows palpable Left dorsalis pedis posterior tibial pulse. Posterior aspect of her Left Achilles 3 to 4 cm above the insertion shows an eschar with some trace hyperemia just around the eschar which is less than a centimeter by centimeter. No active drainage. No fluctuance appreciated. There is palpable Achilles intact throughout. No other surrounding erythema appreciated. No fluctuance appreciated no defect appreciated. She able to flex and extend toes and ankle negative calf squeeze test peer Conclusion/Plan - Diagnosis Diagnosis: Achilles wound/eschar without evidence of infection or deep collection. - Plan Plan: Left Achilles Wound. No evidence of fluctuance or deep infection. minimal surrounding cellulitis. Improved by report. Recommend Xeroform dressing, dry cotton gauze, soft roll, Case, walking boot. Will defer to wound care clinic for special wound dressing or care as needed. I do not see indication for orthopedic surgical intervention at this time. We will continue to follow as needed. May follow-up with wound care team While in the hospital or if discharged. May also follow-up in orthopedic clinic as necessary if discharge. Recommend close follow-up every 2 to 3 days maximum during the initial period of healing. Please notify if problems questions or worsening condition should arise. Above discussed with patient and hospitalist team. - Lab Results Lab results reviewed: Yes Fish Bones: 10/29/18 05:00 10/29/18 05:00
== END 2018-10-30 18:04 | disposition home or self-care (01) ==
LOC: ED 10:14 → MS2 15:34
PROVIDERS: ADMIT Nurse Practitioner; ATTEND Nurse Practitioner
DX: L03.116 Cellulitis of left lower limb (principal); S81.802A Unspecified open wound, left lower leg, initial encounter; E11.65 Type 2 diabetes mellitus with hyperglycemia; E11.51 Type 2 diabetes mellitus with diabetic peripheral angiopathy without gangrene; E11.42 Type 2 diabetes mellitus with diabetic polyneuropathy; G47.33 Obstructive sleep apnea (adult) (pediatric); J43.9 Emphysema, unspecified; J32.9 Chronic sinusitis, unspecified; G35 Multiple sclerosis; F41.0 Panic disorder [episodic paroxysmal anxiety]; F15.20 Other stimulant dependence, uncomplicated; F17.218 Nicotine dependence, cigarettes, with other nicotine-induced disorders; F39 Unspecified mood [affective] disorder; I10 Essential (primary) hypertension; G89.4 Chronic pain syndrome; F32.9 Major depressive disorder, single episode, unspecified; N87.9 Dysplasia of cervix uteri, unspecified; E55.9 Vitamin D deficiency, unspecified; B19.20 Unspecified viral hepatitis C without hepatic coma; Z79.899 Other long term (current) drug therapy; Z85.44 Personal history of malignant neoplasm of other female genital organs; Z60.9 Problem related to social environment, unspecified; Z91.11 Patient's noncompliance with dietary regimen; Z86.19 Personal history of other infectious and parasitic diseases; Z79.84 Long term (current) use of oral hypoglycemic drugs; Z79.51 Long term (current) use of inhaled steroids; Z87.01 Personal history of pneumonia (recurrent)
CPT/HCPCS: 36415; 73600; 80053; 80202; 80306; 81001; 83036; 83605; 83735; 84100; 84703; 85025; 86140; 87040; 87640; 96361; 96365; 96366; 96375; 96376; 99284; 99285; A9270; G0378; J1815; J3370; J8499; 80048; 87086

== ENCOUNTER 2018-11-15 15:00 | Outpatient (CLI) | payer MEDICAID | END 2018-11-15 23:59 | disposition home or self-care (01) | LOC: LAB.R 15:00 | PROVIDERS: ATTEND Family Medicine | DX: L03.119 Cellulitis of unspecified part of limb (principal) | CPT/HCPCS: 87070; 87075; 87077; 87186; 87205 ==

== ENCOUNTER 2019-06-26 09:46 | Outpatient (CLI) | payer MEDICAID ==
[2019-06-26 12:03] LABS: BASOPHILS # (AUTO) 0.1 10^3/uL (0.0-0.1); BASOPHILS % (AUTO) 0.8 %; EOSINOPHILS # (AUTO) 0.3 10^3/uL (0.0-0.7); EOSINOPHILS % (AUTO) 4.1 %; HGB - HEMOGLOBIN 13.4 g/dL (12.0-16.0); LYMPHOCYTES % (AUTO) 25.5 %; MEAN CORPUSCULAR HEMOGLOBIN 29.4 pg (27.0-31.0); MEAN CORPUSCULAR HGB CONC 32.8 g/dL (32.0-36.0); MEAN CORPUSCULAR VOLUME 89.5 fL (81.0-99.0); MEAN PLATELET VOLUME 10.6 fL (7.9-10.8); MONOCYTES # (AUTO) 0.5 10^3/uL (0.0-1.0); MONOCYTES % (AUTO) 6.2 %; NEUTROPHILS # (AUTO) 4.9 10^3/uL (1.5-6.6); PLT - PLATELET COUNT 304 10^3/uL (130-450); RED BLOOD COUNT 4.56 10^6/uL (4.20-5.40); RED CELL DISTRIBUTION WIDTH 12.2 % (12.0-15.0); WHITE BLOOD COUNT 7.7 x10^3/uL (4.8-10.8)
[2019-06-26 12:32] LABS: HB2 TOTAL 13.6 g/dL; HEMOGLOBIN A1C 0.91 g/dL; HEMOGLOBIN A1C % 8.3 % (4.6-6.2)
[2019-06-26 13:03] LABS: ALBUMIN 3.8 g/dL (3.2-5.5); ALBUMIN/GLOBULIN RATIO 1.2 (1.0-2.2); ALKALINE PHOSPHATASE 109 IU/L (42-121); ALT ALANINE AMINOTRANSFERASE 14 IU/L (10-60); AST ASPARTATE AMINOTRANSFERASE 15 IU/L (10-42); BILIRUBIN,TOTAL 0.6 mg/dL (0.2-1.0); BUN - BLOOD UREA NITROGEN 18 mg/dL (6-20); CALCIUM 8.9 mg/dL (8.5-10.3); CARBON DIOXIDE - CO2 24 mmol/L (21-32); CHLORIDE 100 mmol/L (101-111); CHOL/HDL RATIO 3.9 (<4.4); CHOLESTEROL 212 mg/dL; CREATININE 0.9 mg/dL (0.4-1.0); GLUCOSE 307 mg/dL (70-100); HDL CHOLESTEROL 55 mg/dL; LDL CHOLESTEROL,CALCULATED 129 mg/dL; LDL/HDL RATIO 2.3 (<4.4); SODIUM 133 mmol/L (135-145); TOTAL PROTEIN 7.1 g/dL (6.7-8.2); VLDL CHOLESTEROL 28 mg/dL
== END 2019-06-26 23:59 | disposition home or self-care (01) ==
LOC: LAB.N 09:46
PROVIDERS: ATTEND Nurse Practitioner Gerontology
DX: I10 Essential (primary) hypertension (principal); E11.9 Type 2 diabetes mellitus without complications
CPT/HCPCS: 36415; 80053; 80061; 83036; 83721; 85025

== ENCOUNTER 2019-12-10 03:21 | Emergency (ER) | payer MEDICAID ==
--- NOTE | 2019-12-10 03:23 | ED Physician Documentation ---
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 She also c/o generalized myalgias. Denies fever (says her temperature at home was 97). Review of Systems Constitutional: reports: Myalgias. denies: Fever, Chills, Sweats Eyes: reports: Discharge, Irritation Ears: denies: Ear pain Throat: reports: Sore throat Cardiac: denies: Chest pain / pressure, Palpitations, Pedal edema Respiratory: reports: Dyspnea, Cough. 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: Other (Vulvar cancer, +HPV) : Retention, Incontinence, Nocturia, Frequency HEENT: Chronic vision loss, Chronic sinusitis, Chronic hearing loss Psych: Depression, Anxiety, Panic attacks, Post traumatic stress disorder Musculoskeletal: Osteoarthritis, Rheumatoid arthritis Derm: None, Other - Past Surgical History Past Surgical History: Yes General: Colonoscopy, EGD Ortho: Carpal Tunnel surgery /SUPERVISOR CLAIMS: LEEP (Cervical surgery), Other HEENT: Tonsil/Adenoidectomy Derm: Skin grafts, Debridement - Present Medications Home Medications: Ambulatory Orders Medication Instructions Recorded Confirmed Metformin HCl 1,000 mg PO BIDWM 09/25/14 11/20/18 Cetirizine [ZyrTEC] 10 mg PO DAILY 08/12/16 11/20/18 Zonisamide 100 mg PO QPM 08/24/18 11/20/18 Albuterol Sulfate [Albuterol 2 puffs INH Q4H PRN 10/28/18 11/20/18 Sulfate Hfa] Cholecalciferol (Vitamin D3) 6,000 units PO DAILY 10/28/18 11/20/18 [Vitamin D3] Duloxetine HCl 30 mg PO QPM 10/28/18 11/20/18 Fluticasone [Flonase] 2 spray SB DAILY 10/28/18 11/20/18 Gabapentin 300 mg PO DAILY 10/28/18 11/20/18 Gabapentin 600 mg PO QPM 10/28/18 11/20/18 Glatiramer Acetate [Copaxone] 40 mg SUBQ SUWEFR@0900 10/28/18 11/20/18 Meloxicam 7.5 mg PO BID 10/28/18 11/20/18 Promethazine HCl 6.25 mg PO Q6H PRN 10/28/18 11/20/18 Rizatriptan Benzoate [Rizatriptan] 10 mg PO ONCE PRN 10/28/18 11/20/18 Blood-Glucose Meter [Glucometer] 1 each QID #1 each 10/30/18 11/20/18 Insulin Glargine [Lantus Solostar] 15 unit SQ DAILY #1 pen 10/30/18 11/20/18 Lancets/Blood Glucose Strips [Fora 1 each QID #120 combo..pkg 10/30/18 11/20/18 [id number] Strp-Lnct] Pen Needle, Diabetic [Pen Dalton] 1 each QID #120 dis.needle 10/30/18 11/20/18 Saccharomyces Boulardii [Florastor] 250 mg PO BID #60 capsule 10/30/18 11/20/18 Erythromycin Base [Erythromycin 1 film EACHEYE BID #1 oint...g. 12/10/19 Ophthalmic Ointment] predniSONE [Prednisone] 40 mg PO DAILY 4 Days #8 tablet 12/10/19 - Allergies Allergies/Adverse Reactions: Allergies Allergy/AdvReac Type Severity Reaction Status Date / Time acetaminophen [From Vicodin] AdvReac Unknown Itching Verified 12/10/19 03:32 cephalexin AdvReac Unknown Respiratory Verified 12/10/19 03:32 ciprofloxacin [From Cipro] AdvReac Unknown Nausea Verified 12/10/19 03:32 codeine AdvReac Unknown Hives Verified 12/10/19 03:32 hydrocodone bitartrate * AdvReac Unknown Itching Verified 12/10/19 03:32 [From Vicodin] Penicillins AdvReac Unknown Itching Verified 12/10/19 03:32 propoxyphene HCl * AdvReac Unknown Hives Verified 12/10/19 03:32 [From Darvon] doxycycline AdvReac Unknown Verified 12/10/19 03:32 sulfamethoxazole AdvReac Unknown Verified 12/10/19 03:32 [From Bactrim] trimethoprim [From Bactrim] AdvReac Unknown Verified 12/10/19 03:32 - Social History Does the pt smoke?: Yes Smoking Status: Current every day smoker Does the pt drink ETOH?: Yes Does the pt have substance abuse?: No - Immunizations Immunizations are current?: Yes - POLST Patient has POLST: No PD ED PE NORMAL - Vitals Vital signs reviewed: Yes - General General: Alert and oriented X 3, No acute distress, Well developed/nourished - HEENT HEENT: Moist mucous membranes, Pharynx benign - Neck Neck: Supple, no meningeal sign, No JVD - Cardiac Cardiac: RRR, No murmur - Respiratory Respiratory: No respiratory distress, Clear bilaterally PD ED PE EXPANDED - Eyes Eyes: Injected conj/sclera (mild, bilateral) Results - Vitals Vitals: Vital Signs - 24 hr 12/10/19 12/10/19 12/10/19 03:25 03:47 04:07 Temperature 36.9 C Heart Rate 90 78 80 Respiratory 20 18 18 Rate Blood Pressure 131/81 H 118/75 O2 Saturation 99 100 12/10/19 04:45 Temperature 37.0 C Heart Rate 84 Respiratory 18 Rate Blood Pressure 127/90 H O2 Saturation 100 Oxygen O2 Source Room air - Labs Labs: Laboratory Tests 12/10/19 03:37 Group A Strep Rapid Negative - Rads (name of study) chest xray Radiology: Prelim report reviewed, See rad report PD MEDICAL DECISION MAKING - ED course Complexity details: reviewed results, re-evaluated patient, considered differential, d/w patient ED course: On reevaluation, after PO prednisone and duoneb, patient is asleep, awakens to voice. 100% pulse ox on room air, NAD including no respiratory distress. CXR s/o bronchitis Departure - Departure Disposition: 01 Home, Self Care Condition: Good Instructions: ED Bronchitis Asthmatic Prescriptions: Erythromycin Base [Erythromycin Ophthalmic Ointment] 1 film EACHEYE BID #1 oint...g. predniSONE [Prednisone] 40 mg PO DAILY 4 Days #8 tablet Discharge Date/Time: 12/10/19 04:50
[2019-12-10] MEDS ORDERED: predniSONE 20 MG TABLET PO STA (03:34)
[2019-12-10] MEDS ORDERED: IPRATROPIUM/ALBUTEROL 3 ML NEB INH STA (03:34)
[2019-12-10 03:49] LABS: RAPID STREP SCREEN Negative (Negative)
[2019-12-10] MEDS ORDERED: ERYTHROMYCIN OPHTH OINT 1 GM TUBE EACHEYE STA (04:36)
[2019-12-10 04:53] VITALS: BP 127/90
--- NOTE | 2019-12-10 08:27 | XRAY Report ---
PROCEDURE: Chest 2 View X-Ray INDICATIONS: cough, dyspnea TECHNIQUE: 2 view(s) of the chest. COMPARISON: None. FINDINGS: Surgical changes and devices: None. Lungs and pleura: No pleural effusions or pneumothorax. Lungs are clear. Mediastinum: Mediastinal contours are normal. Heart size is normal. Bones and chest wall: No suspicious bony abnormalities. Soft tissues appear unremarkable. IMPRESSION: Normal for age, source of current dyspnea is not found. No pneumonia is suspected. Reviewed by: Noah Anguiano MD on 12/10/2019 8:26 AM PDT Approved by: Noah Anguiano MD on 12/10/2019 8:26 AM PDT Station ID: [id number]
== END 2019-12-10 04:50 | disposition home or self-care (01) ==
LOC: ED 03:21
DX: J40 Bronchitis, not specified as acute or chronic (principal); H10.9 Unspecified conjunctivitis; E11.9 Type 2 diabetes mellitus without complications; F17.200 Nicotine dependence, unspecified, uncomplicated; Z79.4 Long term (current) use of insulin; Z20.828 Contact with and (suspected) exposure to other viral communicable diseases
CPT/HCPCS: 71046; 87070; 87430; 87635; 94640; 99284; J3490; J7512; 81599

== ENCOUNTER 2020-01-02 13:50 | Outpatient (CLI) | payer MEDICAID ==
[2020-01-02 18:31] LABS: BILIRUBIN,URINE NEGATIVE (NEGATIVE); GLUCOSE, URINE (UA) >=1000 mg/dL (NEGATIVE); KETONES,URINE (UA) NEGATIVE (NEGATIVE); LEUKOCYTE ESTERASE, URINE NEGATIVE (NEGATIVE); NITRITE,URINE NEGATIVE (NEGATIVE); OCCULT BLOOD,URINE NEGATIVE (NEGATIVE); PH,URINE 5.5 PH (5.0-7.5); PROTEIN,URINE NEGATIVE (NEGATIVE); UROBILINOGEN,URINE 0.2 (NORMAL) E.U./dL (NORMAL)
[2020-01-02 18:44] LABS: BACTERIA,URINE None Seen /HPF (None Seen); CLARITY,URINE CLEAR (CLEAR); RBC,URINE None Seen /HPF (0-5); SQUAMOUS EPITHELIAL CELL,UR FEW Squamous (<= Few)
== END 2020-01-02 23:59 | disposition home or self-care (01) ==
LOC: LAB.WCP 13:50
PROVIDERS: ATTEND Family Medicine
DX: R30.0 Dysuria (principal)
CPT/HCPCS: 81001; 87086

== ENCOUNTER 2020-01-03 13:35 | Outpatient (CLI) | payer MEDICAID ==
[2020-01-03 19:02] LABS: BASOPHILS # (AUTO) 0.1 10^3/uL (0.0-0.1); BASOPHILS % (AUTO) 0.8 %; EOSINOPHILS # (AUTO) 0.4 10^3/uL (0.0-0.7); EOSINOPHILS % (AUTO) 3.3 %; HGB - HEMOGLOBIN 14.7 g/dL (12.0-16.0); LYMPHOCYTES # (AUTO) 2.6 10^3/uL (1.5-3.5); LYMPHOCYTES % (AUTO) 21.4 %; MEAN CORPUSCULAR HEMOGLOBIN 30.1 pg (27.0-31.0); MEAN CORPUSCULAR HGB CONC 34.7 g/dL (32.0-36.0); MEAN CORPUSCULAR VOLUME 86.9 fL (81.0-99.0); MEAN PLATELET VOLUME 10.9 fL (7.9-10.8); MONOCYTES # (AUTO) 0.6 10^3/uL (0.0-1.0); MONOCYTES % (AUTO) 5.4 %; NEUTROPHILS # (AUTO) 8.2 10^3/uL (1.5-6.6); NEUTROPHILS % (AUTO) 68.7 %; PLT - PLATELET COUNT 342 10^3/uL (130-450); RED BLOOD COUNT 4.88 10^6/uL (4.20-5.40); RED CELL DISTRIBUTION WIDTH 12.3 % (12.0-15.0)
[2020-01-03 19:17] LABS: ALBUMIN 4.3 g/dL (3.2-5.5); ALBUMIN/GLOBULIN RATIO 1.2 (1.0-2.2); ALKALINE PHOSPHATASE 132 IU/L (42-121); ALT ALANINE AMINOTRANSFERASE 17 IU/L (10-60); AST ASPARTATE AMINOTRANSFERASE 17 IU/L (10-42); BILIRUBIN,TOTAL 0.4 mg/dL (0.2-1.0); BUN - BLOOD UREA NITROGEN 32 mg/dL (6-20); CALCIUM 9.8 mg/dL (8.5-10.3); CARBON DIOXIDE - CO2 23 mmol/L (21-32); CHLORIDE 94 mmol/L (101-111); CHOL/HDL RATIO 4.6 (<4.4); CHOLESTEROL 246 mg/dL; HDL CHOLESTEROL 53 mg/dL; SODIUM 128 mmol/L (135-145)
[2020-01-03 19:19] LABS: CREATININE,URINE 42.8 mg/dL; MICROALBUM/CREATININE RATIO,UR 4.7 ug/mg (<30.0); MICROALBUMIN,URINE 0.2 mg/dL (0-300.0)
[2020-01-03 19:36] LABS: HEMOGLOBIN A1c% 11.9 % (4.27-6.07)
[2020-01-03 19:41] LABS: LDL CHOLESTEROL,DIRECT 148 mg/dL; LDLD/HDL RATIO 2.8 (<4.4)
[2020-01-03 19:58] LABS: GLUCOSE 570 mg/dL (70-100)
[2020-01-04 15:25] LABS: HIV AG/AB 4TH GEN NON-REACTIVE (NON-REACTIVE)
== END 2020-01-03 23:59 | disposition home or self-care (01) ==
LOC: LAB.WCP 13:35
PROVIDERS: ATTEND Family Medicine
DX: E11.9 Type 2 diabetes mellitus without complications (principal)
CPT/HCPCS: 36415; 80053; 80061; 81599; 82043; 82570; 83036; 83721; 84443; 85025; 86480; 87389

== ENCOUNTER 2020-03-13 11:16 | Outpatient (CLI) | payer MEDICAID ==
--- NOTE | 2020-03-13 17:22 | CT Report ---
PROCEDURE: CERVICAL SPINE WO INDICATIONS: ARM NUMBNESS TECHNIQUE: Noncontrast 3 mm thick sections acquired from the skull base to the T4 level. Sagittal and coronal r eformats were then constructed. For radiation dose reduction, the following was used: automated exp osure control, adjustment of mA and/or kV according to patient size. COMPARISON: None FINDINGS: Image quality: Excellent. Degenerative anterolisthesis of C3 on C4 measuring 2 mm. Degenerative anterolisthesis of C4 on C5 wesley suring 3 mm. Degenerative straightening of usual cervical lordosis. Otherwise normal alignment. Verte bral body heights maintained. No suspicious lytic or blastic osseous lesion. Disc height loss from C4-C5 through C6-C7. Facet osteoarthropathy and uncovertebral hypertrophy at ev prem level from C3-C4 through C6-C7. Prevertebral and paraspinous soft tissues are within normal limits. At C2-C3, no spinal canal stenosis or neural foraminal stenosis. At C3-C4, no spinal canal stenosis. Facet and uncovertebral hypertrophy contribute to moderate left g reater than right neural foraminal stenosis. At C4-C5, no spinal canal stenosis. Facet and uncovertebral hypertrophy contribute to severe right an d moderate left neural foraminal stenosis. At C6-C7, no spinal canal stenosis. Facet and uncovertebral hypertrophy could be due to mild neural f oraminal narrowing on the left. At C7-T1, no spinal canal or neural foraminal stenosis. IMPRESSION: Multilevel multifactorial degenerative changes resulting in varying degrees of neural foraminal steno sis, appearing worst at C4-C5. Correlate the above findings with the patient's reticular symptoms. Reviewed by: Michelet Silva MD on 03/13/2020 4:21 PM [facility] Approved by: Michelet Silva MD on 03/13/2020 4:21 PM [facility] Station ID: [id number]
== END 2020-03-13 11:17 | disposition home or self-care (01) ==
LOC: DI 11:16
PROVIDERS: ATTEND Nurse Practitioner Family
DX: R20.0 Anesthesia of skin (principal); M47.812 Spondylosis without myelopathy or radiculopathy, cervical region
CPT/HCPCS: 72125

== ENCOUNTER 2020-07-22 21:32 | Outpatient (CLI) | payer MEDICAID | END 2020-07-22 21:33 | disposition short-term general hospital (02) | LOC: EMS 21:32 | DX: R10.9 Unspecified abdominal pain (principal) | CPT/HCPCS: A0425; A0429 ==

== ENCOUNTER 2021-04-13 08:00 | Outpatient (CLI) | payer MEDICAID ==
[2021-04-13 18:16] LABS: BASOPHILS # (AUTO) 0.1 10^3/uL (0.0-0.1); BASOPHILS % (AUTO) 0.7 %; EOSINOPHILS # (AUTO) 0.3 10^3/uL (0.0-0.7); EOSINOPHILS % (AUTO) 3.3 %; HCT - HEMATOCRIT 44.1 % (37.0-47.0); LYMPHOCYTES # (AUTO) 2.1 10^3/uL (1.5-3.5); MEAN CORPUSCULAR HEMOGLOBIN 29.4 pg (27.0-31.0); MEAN CORPUSCULAR VOLUME 86.5 fL (81.0-99.0); MEAN PLATELET VOLUME 10.7 fL (7.9-10.8); MONOCYTES # (AUTO) 0.4 10^3/uL (0.0-1.0); MONOCYTES % (AUTO) 4.4 %; NEUTROPHILS # (AUTO) 5.9 10^3/uL (1.5-6.6); NEUTROPHILS % (AUTO) 67.4 %; PLT - PLATELET COUNT 343 10^3/uL (130-450); RED CELL DISTRIBUTION WIDTH 12.3 % (12.0-15.0); WHITE BLOOD COUNT 8.8 x10^3/uL (4.8-10.8)
[2021-04-13 19:10] LABS: ALBUMIN 4.1 g/dL (3.2-5.5); ALBUMIN/GLOBULIN RATIO 1.1 (1.0-2.2); ALKALINE PHOSPHATASE 103 IU/L (42-121); ALT ALANINE AMINOTRANSFERASE 17 IU/L (10-60); AST ASPARTATE AMINOTRANSFERASE 17 IU/L (10-42); BILIRUBIN,TOTAL < 0.2 mg/dL (0.2-1.0); BUN - BLOOD UREA NITROGEN 19 mg/dL (6-20); CALCIUM 9.6 mg/dL (8.5-10.3); CARBON DIOXIDE - CO2 26 mmol/L (21-32); CHLORIDE 94 mmol/L (101-111); CREATININE 1.1 mg/dL (0.4-1.0); GFR - MDRD 52 (>89); GLUCOSE 426 mg/dL (70-100); POTASSIUM 4.1 mmol/L (3.5-5.0); SODIUM 133 mmol/L (135-145)
[2021-04-13 21:47] LABS: ESTIMATED AVERAGE GLUCOSE 240 mg/dL (70-100)
[2021-04-15 15:31] LABS: HIV AG/AB 4TH GEN NON-REACTIVE (NON-REACTIVE)
== END 2021-04-13 23:59 ==
LOC: LAB.N 08:00
PROVIDERS: ATTEND Physician Assistant Medical
DX: E11.9 Type 2 diabetes mellitus without complications (principal); R30.0 Dysuria
CPT/HCPCS: 36415; 80053; 83036; 84443; 85025; 87086; 87389

== ENCOUNTER 2021-07-21 07:46 | Outpatient (CLI) | payer MEDICAID ==
[2021-07-21 12:35] LABS: BASOPHILS # (AUTO) 0.1 10^3/uL (0.0-0.1); BASOPHILS % (AUTO) 0.9 %; EOSINOPHILS # (AUTO) 0.4 10^3/uL (0.0-0.7); EOSINOPHILS % (AUTO) 5.2 %; HCT - HEMATOCRIT 42.1 % (37.0-47.0); HGB - HEMOGLOBIN 14.2 g/dL (12.0-16.0); LYMPHOCYTES # (AUTO) 2.2 10^3/uL (1.5-3.5); LYMPHOCYTES % (AUTO) 28.5 %; MEAN CORPUSCULAR HGB CONC 33.7 g/dL (32.0-36.0); MEAN CORPUSCULAR VOLUME 88.8 fL (81.0-99.0); MEAN PLATELET VOLUME 10.7 fL (7.9-10.8); MONOCYTES # (AUTO) 0.6 10^3/uL (0.0-1.0); MONOCYTES % (AUTO) 7.5 %; NEUTROPHILS # (AUTO) 4.4 10^3/uL (1.5-6.6); NEUTROPHILS % (AUTO) 57.6 %; PLT - PLATELET COUNT 307 10^3/uL (130-450); RED BLOOD COUNT 4.74 10^6/uL (4.20-5.40); RED CELL DISTRIBUTION WIDTH 12.1 % (12.0-15.0); WHITE BLOOD COUNT 7.6 x10^3/uL (4.8-10.8)
[2021-07-21 13:29] LABS: THYROID STIMULATING HORMONE 1.78 uIU/mL (0.34-5.60)
[2021-07-21 13:40] LABS: FOLATE 7.86 ng/mL (5.90 - >24.8)
== END 2021-07-21 07:47 | disposition home or self-care (01) ==
LOC: LAB.N 07:46
PROVIDERS: ATTEND Psychiatry & Neurology Neurology
DX: F41.9 Anxiety disorder, unspecified (principal); R41.3 Other amnesia; E56.9 Vitamin deficiency, unspecified; E55.9 Vitamin D deficiency, unspecified; G35 Multiple sclerosis
CPT/HCPCS: 36415; 82607; 82652; 82746; 84443; 85025

== ENCOUNTER 2021-09-04 18:21 | Outpatient (CLI) | payer MEDICAID | END 2021-09-04 18:22 | disposition home or self-care (01) | LOC: LAB 18:21 | PROVIDERS: ATTEND Nurse Practitioner Family | DX: F15.11 Other stimulant abuse, in remission (principal) | CPT/HCPCS: 80307; 80324; 81599 ==

== ENCOUNTER 2021-12-01 07:48 | Outpatient (CLI) | payer MEDICAID ==
[2021-12-01 12:18] LABS: BASOPHILS # (AUTO) 0.1 10^3/uL (0.0-0.1); BASOPHILS % (AUTO) 0.7 %; EOSINOPHILS # (AUTO) 0.5 10^3/uL (0.0-0.7); EOSINOPHILS % (AUTO) 4.4 %; HCT - HEMATOCRIT 40.5 % (37.0-47.0); HGB - HEMOGLOBIN 13.4 g/dL (12.0-16.0); LYMPHOCYTES # (AUTO) 2.5 10^3/uL (1.5-3.5); LYMPHOCYTES % (AUTO) 23.6 %; MEAN CORPUSCULAR HEMOGLOBIN 29.1 pg (27.0-31.0); MEAN CORPUSCULAR HGB CONC 33.1 g/dL (32.0-36.0); MEAN PLATELET VOLUME 10.8 fL (7.9-10.8); MONOCYTES # (AUTO) 0.7 10^3/uL (0.0-1.0); MONOCYTES % (AUTO) 6.3 %; NEUTROPHILS # (AUTO) 6.9 10^3/uL (1.5-6.6); NEUTROPHILS % (AUTO) 64.6 %; PLT - PLATELET COUNT 305 10^3/uL (130-450); RED CELL DISTRIBUTION WIDTH 12.6 % (12.0-15.0); WHITE BLOOD COUNT 10.7 x10^3/uL (4.8-10.8)
[2021-12-01 12:37] LABS: ALBUMIN 4.5 g/dL (3.2-5.5); ALBUMIN/GLOBULIN RATIO 1.2 (1.0-2.2); ALKALINE PHOSPHATASE 70 IU/L (42-121); ALT ALANINE AMINOTRANSFERASE 19 IU/L (10-60); AST ASPARTATE AMINOTRANSFERASE 17 IU/L (10-42); BILIRUBIN,TOTAL 0.4 mg/dL (0.2-1.0); BUN - BLOOD UREA NITROGEN 23 mg/dL (6-20); CALCIUM 9.5 mg/dL (8.5-10.3); CARBON DIOXIDE - CO2 26 mmol/L (21-32); CHLORIDE 99 mmol/L (101-111); CHOL/HDL RATIO 4.2 (<4.4); CHOLESTEROL 241 mg/dL; CREATININE 1.3 mg/dL (0.4-1.0); GFR - MDRD 43 (>89); GLUCOSE 215 mg/dL (70-100); HDL CHOLESTEROL 57 mg/dL; LDL CHOLESTEROL,CALCULATED 130 mg/dL; LDL/HDL RATIO 2.3 (<4.4); POTASSIUM 4.4 mmol/L (3.5-5.0); SODIUM 135 mmol/L (135-145); TOTAL PROTEIN 8.3 g/dL (6.7-8.2); TRIGLYCERIDES 268 mg/dL; VLDL CHOLESTEROL 54 mg/dL
[2021-12-01 12:46] LABS: THYROID STIMULATING HORMONE 1.91 uIU/mL (0.34-5.60)
[2021-12-01 19:59] LABS: ESTIMATED AVERAGE GLUCOSE 197 mg/dL (70-100); HEMOGLOBIN A1c% 8.5 % (4.27-6.07)
== END 2021-12-01 07:49 | disposition home or self-care (01) ==
LOC: LAB.N 07:48
PROVIDERS: ATTEND Nurse Practitioner Family
DX: E11.65 Type 2 diabetes mellitus with hyperglycemia (principal)
CPT/HCPCS: 36415; 80053; 80061; 83036; 83721; 84443; 85025

== ENCOUNTER 2021-12-01 08:00 | Outpatient (CLI) | payer MEDICAID ==
--- NOTE | 2021-12-01 22:08 | XRAY Report ---
PROCEDURE: Ribs w/PA Chest RT INDICATIONS: R RIB PX TECHNIQUE: 3 views of the right ribs were acquired, along with a single view chest. COMPARISON: None FINDINGS: Surgical changes and devices: None. Bones and chest wall: No fractures or dislocations. No suspicious bony lesions. Overlying soft tis sues appear unremarkable. Lungs and pleura: No pleural effusions or pneumothorax. Lungs appear clear. Mediastinum: Mediastinal contours appear normal. Heart size is normal. IMPRESSION: No visualized acute fracture or dislocation. However, occult injury cannot be excluded. Recommend celestina rt interval imaging follow-up in 7-10 days as clinically indicated for additional evaluation. Reviewed by: Migdalia Vázquez MD on 12/01/2021 10:06 PM PDT Approved by: Migdalia Vázquez MD on 12/01/2021 10:06 PM PDT Station ID: [id number]
== END 2021-12-01 23:59 | disposition home or self-care (01) ==
LOC: DI.N 08:00
PROVIDERS: ATTEND Registered Nurse
DX: R07.81 Pleurodynia (principal)

== ENCOUNTER 2022-01-18 09:49 | Outpatient (CLI) | payer MEDICAID ==
--- NOTE | 2022-01-20 09:32 | Mammography Report ---
BILATERAL DIGITAL SCREENING MAMMOGRAM 3D/2D: 01/18/2022 CLINICAL: Routine screening. Comparison is made to exams dated: 09/13/2018 mammogram, 04/03/2014 mammogram, and 02/19/2013 mammogram - [facility]. There are scattered areas of fibroglandular density in both breasts (category b / 25%-50% glandular t issue). No significant masses, calcifications, or other findings are seen in either breast. There has been no significant interval change. IMPRESSION: NEGATIVE There is no mammographic evidence of malignancy. A 1 year screening mammogram is recommended. Based on the Tyrer Cuzick model (a risk assessment model) the patients lifetime risk is 5.6% and her 10 year risk is 1.7%. According to the ACR, ACS, and NCCN guidelines, an annual breast MRI exam eda g with mammogram is recommended if the patients lifetime risk is 20% or greater. This exam was interpreted at Station ID: [id number]. NOTE: For mammograms, a report in lay terms will be sent to the patient. Approximately 15% of breast malignancies will not be visualized mammographically. In the management of a palpable breast mass, a negative mammogram must not discourage biopsy of a clinically suspicious lesion. Electronically Signed By: Gt [email or web address]/[email or web address]:01/18/2022 14:26:44 ACR BI-RADS Category 1: Negative 3341F PARENCHYMAL PATTERN: (A) - The breast(s) demonstrate(s) scattered fibroglandular densities. BI-RADS CATEGORY: (1) - 1 RECOMMENDATION: (ANNUAL) - Recommend routine annual screening mammography. [id number] 1 year screening LATERALITY: (B)
== END 2022-01-18 09:50 | disposition home or self-care (01) ==
LOC: DI 09:49
PROVIDERS: ATTEND Nurse Practitioner Family
DX: Z12.31 Encounter for screening mammogram for malignant neoplasm of breast (principal)

== ENCOUNTER 2022-01-18 09:49 | Outpatient (CLI) | payer MEDICAID ==
--- NOTE | 2022-01-18 11:40 | CT Report ---
PROCEDURE: Low Dose Lung Cancer Screen INDICATIONS: SCREENING FOR LUNG CA TECHNIQUE: Noncontrast low-dose axial images were acquired from the pulmonary apices to the posterior costophren ic angles. Multiplanar MIP reformats were then reconstructed. For radiation dose reduction, the follo wing was used: automated exposure control, adjustment of mA and/or kV according to patient size. COMPARISON: None. FINDINGS: Image quality: Excellent. Lungs and pleura: Mild upper lobe centrilobular and paraseptal emphysematous changes. Central and pe ripheral airways are patent and normal caliber without significant bronchial wall thickening. Short l inear subpleural calcification in the superior segment right lower lobe medially, 4/130. 2 mm left up per lobe calcified nodule, 4/85. No other solid or groundglass nodules present. No dense consolidatio n, effusion, or pneumothorax. Mediastinum: Heart size is normal. No pericardial effusion. Mild coronary calcification. No medias tinal adenopathy by size criteria. Thoracic aorta and central pulmonary arteries are normal in size. Esophagus is normal in caliber. No hiatal hernia. Bones and chest wall: No suspicious bony lesions. No vertebral body compression fractures. No axil camilo or supraclavicular adenopathy by size criteria. Thyroid gland is not well seen due to technique . Abdomen: No gross abnormalities in the upper abdominal solid organs which are incompletely evaluated due to low-dose technique.. IMPRESSION: 1. Calcified bilateral nodules are benign. 2. No suspicious lung nodules. 3. Lung RADS category 2, benign. Continue annual low-dose chest CT screening as long as the patient m eets established criteria. 4. Mild coronary artery calcification. Reviewed by: Kelsey Wright MD on 01/18/2022 10:39 AM [facility] Approved by: Kelsey Wright MD on 01/18/2022 10:39 AM [facility] Station ID: [id number]
== END 2022-01-18 09:50 | disposition home or self-care (01) ==
LOC: DI 09:49
PROVIDERS: ATTEND Nurse Practitioner Family
DX: Z12.2 Encounter for screening for malignant neoplasm of respiratory organs (principal); N87.9 Dysplasia of cervix uteri, unspecified; D07.1 Carcinoma in situ of vulva; R91.8 Other nonspecific abnormal finding of lung field; I25.10 Atherosclerotic heart disease of native coronary artery without angina pectoris; F17.210 Nicotine dependence, cigarettes, uncomplicated

== ENCOUNTER 2022-03-01 08:00 | Outpatient (CLI) | payer MEDICAID | END 2022-03-01 23:59 | disposition home or self-care (01) | LOC: LAB 08:00 | PROVIDERS: ATTEND Physician Assistant Medical | DX: N30.00 Acute cystitis without hematuria (principal) | CPT/HCPCS: 87077; 87086; 87181 ==

== ENCOUNTER 2022-08-19 08:01 | Outpatient (CLI) | payer MEDICAID ==
[2022-08-19 11:59] LABS: BASOPHILS # (AUTO) 0.1 10^3/uL (0.0-0.1); EOSINOPHILS # (AUTO) 0.4 10^3/uL (0.0-0.7); EOSINOPHILS % (AUTO) 4.7 %; HCT - HEMATOCRIT 41.5 % (37.0-47.0); LYMPHOCYTES # (AUTO) 2.2 10^3/uL (1.5-3.5); LYMPHOCYTES % (AUTO) 25.1 %; MEAN CORPUSCULAR HEMOGLOBIN 29.9 pg (27.0-31.0); MEAN CORPUSCULAR HGB CONC 33.7 g/dL (32.0-36.0); MEAN CORPUSCULAR VOLUME 88.5 fL (81.0-99.0); MEAN PLATELET VOLUME 10.5 fL (7.9-10.8); MONOCYTES # (AUTO) 0.5 10^3/uL (0.0-1.0); MONOCYTES % (AUTO) 5.9 %; NEUTROPHILS # (AUTO) 5.6 10^3/uL (1.5-6.6); PLT - PLATELET COUNT 322 10^3/uL (130-450); RED BLOOD COUNT 4.69 10^6/uL (4.20-5.40); RED CELL DISTRIBUTION WIDTH 12.7 % (12.0-15.0); WHITE BLOOD COUNT 8.9 x10^3/uL (4.8-10.8)
[2022-08-19 12:04] LABS: CREATININE,URINE 150.7 mg/dL; MICROALBUMIN,URINE 0.6 mg/dL (0-300.0)
[2022-08-19 12:26] LABS: ALBUMIN 4.1 g/dL (3.2-5.5); ALBUMIN/GLOBULIN RATIO 1.1 (1.0-2.2); ALKALINE PHOSPHATASE 67 IU/L (42-121); ALT ALANINE AMINOTRANSFERASE 23 IU/L (10-60); AST ASPARTATE AMINOTRANSFERASE 23 IU/L (10-42); BILIRUBIN,TOTAL 0.5 mg/dL (0.2-1.0); BUN - BLOOD UREA NITROGEN 18 mg/dL (6-20); CALCIUM 9.3 mg/dL (8.5-10.3); CARBON DIOXIDE - CO2 29 mmol/L (21-32); CHLORIDE 104 mmol/L (101-111); CHOLESTEROL 224 mg/dL; CREATININE 1.1 mg/dL (0.4-1.0); GFR - MDRD 52 (>89); GLUCOSE 214 mg/dL (70-100); HDL CHOLESTEROL 56 mg/dL; LDL CHOLESTEROL,CALCULATED 112 mg/dL; POTASSIUM 4.6 mmol/L (3.5-5.0); SODIUM 137 mmol/L (135-145); TOTAL PROTEIN 7.8 g/dL (6.7-8.2); TRIGLYCERIDES 278 mg/dL; VLDL CHOLESTEROL 56 mg/dL
[2022-08-19 12:30] LABS: THYROID STIMULATING HORMONE 1.96 uIU/mL (0.34-5.60)
[2022-08-19 12:37] LABS: ESTIMATED AVERAGE GLUCOSE 255 mg/dL (70-100); HEMOGLOBIN A1c% 10.5 % (4.27-6.07)
== END 2022-08-19 08:02 | disposition home or self-care (01) ==
LOC: LAB.N 08:01
PROVIDERS: ATTEND Nurse Practitioner Family
DX: I10 Essential (primary) hypertension (principal); E78.5 Hyperlipidemia, unspecified; E11.9 Type 2 diabetes mellitus without complications; K52.1 Toxic gastroenteritis and colitis; T36.95XA Adverse effect of unspecified systemic antibiotic, initial encounter
CPT/HCPCS: 36415; 80053; 80061; 82043; 82570; 83036; 83721; 84443; 85025; 87045; 87046; 87177; 87427; 87493

== ENCOUNTER 2022-11-16 09:45 | Outpatient (CLI) | payer MEDICAID ==
--- NOTE | 2022-11-16 14:52 | DEXA Report ---
PROCEDURE: Dexa Spine and/or Hip INDICATIONS: POST MENOPAUSAL TECHNIQUE: Dual energy x-ray absorptiometry (DXA) was performed on a Datezr System. Regions measur ed are the AP Spine, femoral neck, and if needed forearm. COMPARISON: None FINDINGS: Lumbar Spine: Bone Mineral Density 1.64 g/cm/cm,T score 3.8. This is likely falsely elevated due to sclerosis at L 2-L3. Measurement at L1 has a T score of 0.2, which is still within normal limits. Left Femoral Neck: Bone Mineral Density 0.99 g/cm/cm, T score -0.4. Left Hip: Bone Mineral Density 0.96 g/cm/cm,T score -0.4. (T score greater or equal to -1.0: NORMAL) (T score from -1.1 to -2.4: OSTEOPENIA) (T score less than or equal to -2.5 to: OSTEOPOROSIS) Impression: By WHO criteria, this patient has normal bone density. Patients with diagnosis of osteoporosis or osteopenia should have regular bone mineral density assess ment. For those eligible for Medicare, routine testing is allowed once every 2 years. Testing frequ ency can be increased for patients who have rapidly progressing disease or for those who are receivin g medical therapy to restore bone mass. Reviewed by: Gabe Chadwick MD on 11/16/2022 2:51 PM PDT Approved by: Gabe Chadwick MD on 11/16/2022 2:51 PM PDT Station ID: [id number]
== END 2022-11-16 09:46 | disposition home or self-care (01) ==
LOC: DI 09:45
PROVIDERS: ATTEND Nurse Practitioner Family
DX: Z78.0 Asymptomatic menopausal state (principal)

== ENCOUNTER 2022-11-30 19:12 | Emergency (ER) | payer MEDICAID ==
[2022-11-30 19:25] VITALS: BP 152/81; O2SAT 97
[2022-11-30] MEDS ORDERED: oxyCODONE/ACET 5/325 Prepack 4 PO STA (19:31)
[2022-11-30] MEDS ORDERED: FLUCONAZOLE 100 MG TABLET PO STA (19:31)
--- NOTE | 2022-11-30 19:33 | ED Physician Documentation ---
History of Present Illness - Stated complaint Stated Complaint: RASH - Chief complaint Chief Complaint: General - History obtained from History obtained from: Patient (She had a week ago surgery at the [facility], sounds like removal of some condyloma. 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 (Vulvar cancer, +HPV) : Retention, Incontinence, Nocturia, Frequency HEENT: Chronic vision loss, Chronic sinusitis, Chronic hearing loss Psych: Depression, Anxiety, Panic attacks, Post traumatic stress disorder Musculoskeletal: Osteoarthritis, Rheumatoid arthritis Derm: None, Other - Past Surgical History Past Surgical History: Yes General: Colonoscopy, EGD Ortho: Carpal Tunnel surgery /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: LEEP (Cervical surgery), Other HEENT: Tonsil/Adenoidectomy Derm: Skin grafts, Debridement - Present Medications Home Medications: Ambulatory Orders Medication Instructions Recorded Confirmed Metformin HCl 1,000 mg PO BIDWM 09/25/14 11/20/18 Cetirizine [ZyrTEC] 10 mg PO DAILY 08/12/16 11/20/18 Zonisamide 100 mg PO QPM 08/24/18 11/20/18 Albuterol Sulfate [Albuterol 2 puffs INH Q4H PRN 10/28/18 11/20/18 Sulfate Hfa] Cholecalciferol (Vitamin D3) 6,000 units PO DAILY 10/28/18 11/20/18 [Vitamin D3] Duloxetine HCl 30 mg PO QPM 10/28/18 11/20/18 Fluticasone [Flonase] 2 spray SB DAILY 10/28/18 11/20/18 Gabapentin 300 mg PO DAILY 10/28/18 11/20/18 Gabapentin 600 mg PO QPM 10/28/18 11/20/18 Glatiramer Acetate [Copaxone] 40 mg SUBQ SUWEFR@0900 10/28/18 11/20/18 Meloxicam 7.5 mg PO BID 10/28/18 11/20/18 Promethazine HCl 6.25 mg PO Q6H PRN 10/28/18 11/20/18 Rizatriptan Benzoate [Rizatriptan] 10 mg PO ONCE PRN 10/28/18 11/20/18 Blood-Glucose Meter [Glucometer] 1 each QID #1 each 10/30/18 11/20/18 Insulin Glargine [Lantus Solostar] 15 unit SQ DAILY #1 pen 10/30/18 11/20/18 Lancets/Blood Glucose Strips [Fora 1 each QID #120 combo..pkg 10/30/18 11/20/18 [id number] Strp-Lnct] Pen Needle, Diabetic [Pen Robinson] 1 each QID #120 dis.needle 10/30/18 11/20/18 Saccharomyces Boulardii [Florastor] 250 mg PO BID #60 capsule 10/30/18 11/20/18 Erythromycin Base [Erythromycin 1 film EACHEYE BID #1 oint...g. 12/10/19 Ophthalmic Ointment] predniSONE [Prednisone] 40 mg PO DAILY 4 Days #8 tablet 12/10/19 Nystatin [Nystop] 1 applic TOP BID #3 each 11/30/22 - Allergies Allergies/Adverse Reactions: Allergies Allergy/AdvReac Type Severity Reaction Status Date / Time acetaminophen [From Vicodin] AdvReac Unknown Itching Verified 12/10/19 03:32 cephalexin AdvReac Unknown Respiratory Verified 12/10/19 03:32 ciprofloxacin [From Cipro] AdvReac Unknown Nausea Verified 12/10/19 03:32 codeine AdvReac Unknown Hives Verified 12/10/19 03:32 hydrocodone bitartrate * AdvReac Unknown Itching Verified 12/10/19 03:32 [From Vicodin] Penicillins AdvReac Unknown Itching Verified 12/10/19 03:32 propoxyphene HCl * AdvReac Unknown Hives Verified 12/10/19 03:32 [From Darvon] doxycycline AdvReac Unknown Verified 12/10/19 03:32 sulfamethoxazole AdvReac Unknown Verified 12/10/19 03:32 [From Bactrim] trimethoprim [From Bactrim] AdvReac Unknown Verified 12/10/19 03:32 - Social History Does the pt smoke?: Yes Smoking Status: Current every day smoker Does the pt drink ETOH?: Yes Does the pt have substance abuse?: No - Immunizations Immunizations are current?: Yes - POLST Patient has POLST: No PD ED PE NORMAL - Vitals Vital signs reviewed: Yes - General General: Alert and oriented X 3, No acute distress - Derm Derm: Other (Exam done with Shannon BARNEY present and chaperoning. She has kissing intertriginous candidiasis between the glutei) - Neuro Neuro: Alert and oriented X 3, Normal speech Results - Vitals Vitals: Vital Signs - 24 hr 11/30/22 19:16 Temperature 36.7 C Heart Rate 106 H Respiratory 16 Rate Blood Pressure 152/81 H O2 Saturation 97 Oxygen O2 Source Room air PD Medical Decision Making - ED course ED course: She has gluteal intertriginous candidiasis treated with 150 mg of p.o. fluconazole here and topical nystatin. Departure - Departure Disposition: 01 Home, Self Care Clinical Impression: Intertriginous candidiasis Condition: Good Instructions: ED Candidiasis Cutaneous Prescriptions: Nystatin [Nystop] 1 applic TOP BID #3 each Forms: PCP List Discharge Date/Time: 11/30/22 19:49
== END 2022-11-30 19:49 | disposition home or self-care (01) ==
LOC: ED 19:12
DX: B37.2 Candidiasis of skin and nail (principal); F17.200 Nicotine dependence, unspecified, uncomplicated
CPT/HCPCS: 99282; 99283; A9270

== ENCOUNTER 2023-03-03 20:49 | Emergency (ER) | payer MEDICAID ==
[2023-03-03 21:01] VITALS: O2SAT 100
[2023-03-03] MEDS ORDERED: SODIUM CHLORIDE 0.9% 1,000 ML IV STA (21:18)
[2023-03-03] MEDS ORDERED: diphenhydrAMINE INJ 50 MG/ML VIAL IVP STA (21:19)
[2023-03-03] MEDS ORDERED: METOCLOPRAMIDE 10 MG/2 ML VIAL IVP STA (21:20)
[2023-03-03] MEDS ORDERED: CYCLOBENZAPRINE 10 MG TABLET PO STA (21:21)
--- NOTE | 2023-03-03 21:28 | ED Physician Documentation ---
History of Present Illness - Stated complaint Stated Complaint: FALL/HIT HEAD - Chief complaint Chief Complaint: Trauma Hd/Nk - History obtained from History obtained from: Patient - Additonal information Additional information: 57yF with pmh dm, ms, p/w multiple symptoms s/p head injury today at 5:30 pm when she hit the crown of her head on a mantle. no loc, no AC or blood thinners. immediately had severe headache. developed nausea, dizziness, photophobia, ear ringing, and BL neck pain a little later, not improving s/p oral zofran and apap. denies confusion or weakness. She notes she did also take her IFN beta 1 a shot at 6:30pm for her MS, and is unsure if this could be causing some of her symptoms. 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: Other : Retention, Incontinence, Nocturia, Frequency HEENT: Chronic vision loss, Chronic sinusitis, Chronic hearing loss Psych: Depression, Anxiety, Panic attacks, Post traumatic stress disorder Musculoskeletal: Osteoarthritis, Rheumatoid arthritis Derm: None, Other - Past Surgical History Past Surgical History: Yes General: Colonoscopy, EGD Ortho: Carpal Tunnel surgery /RUBY ON RAILS CONSULTANT: LEEP (Cervical surgery), Other HEENT: Tonsil/Adenoidectomy Derm: Skin grafts, Debridement - Present Medications Home Medications: Ambulatory Orders Medication Instructions Recorded Confirmed Metformin HCl 1,000 mg PO BIDWM 09/25/14 11/20/18 Cetirizine [ZyrTEC] 10 mg PO DAILY 08/12/16 11/20/18 Zonisamide 100 mg PO QPM 08/24/18 11/20/18 Albuterol Sulfate [Albuterol 2 puffs INH Q4H PRN 10/28/18 11/20/18 Sulfate Hfa] Cholecalciferol (Vitamin D3) 6,000 units PO DAILY 10/28/18 11/20/18 [Vitamin D3] Duloxetine HCl 30 mg PO QPM 10/28/18 11/20/18 Fluticasone [Flonase] 2 spray SB DAILY 10/28/18 11/20/18 Gabapentin 300 mg PO DAILY 10/28/18 11/20/18 Gabapentin 600 mg PO QPM 10/28/18 11/20/18 Glatiramer Acetate [Copaxone] 40 mg SUBQ SUWEFR@0900 10/28/18 11/20/18 Meloxicam 7.5 mg PO BID 10/28/18 11/20/18 Promethazine HCl 6.25 mg PO Q6H PRN 10/28/18 11/20/18 Rizatriptan Benzoate [Rizatriptan] 10 mg PO ONCE PRN 10/28/18 11/20/18 Blood-Glucose Meter [Glucometer] 1 each QID #1 each 10/30/18 11/20/18 Insulin Glargine [Lantus Solostar] 15 unit SQ DAILY #1 pen 10/30/18 11/20/18 Lancets/Blood Glucose Strips [Fora 1 each QID #120 combo..pkg 10/30/18 11/20/18 [id number] Strp-Lnct] Pen Needle, Diabetic [Pen [place]] 1 each QID #120 dis.needle 10/30/18 11/20/18 Saccharomyces Boulardii [Florastor] 250 mg PO BID #60 capsule 10/30/18 11/20/18 Erythromycin Base [Erythromycin 1 film EACHEYE BID #1 oint...g. 12/10/19 Ophthalmic Ointment] predniSONE [Prednisone] 40 mg PO DAILY 4 Days #8 tablet 12/10/19 Nystatin [Nystop] 1 applic TOP BID #3 each 11/30/22 - Allergies Allergies/Adverse Reactions: Allergies Allergy/AdvReac Type Severity Reaction Status Date / Time acetaminophen [From Vicodin] AdvReac Unknown Itching Verified 03/03/23 20:52 cephalexin AdvReac Unknown Respiratory Verified 03/03/23 20:52 ciprofloxacin [From Cipro] AdvReac Unknown Nausea Verified 03/03/23 20:52 codeine AdvReac Unknown Hives Verified 03/03/23 20:52 hydrocodone bitartrate * AdvReac Unknown Itching Verified 03/03/23 20:52 [From Vicodin] Penicillins AdvReac Unknown Itching Verified 03/03/23 20:52 propoxyphene HCl * AdvReac Unknown Hives Verified 03/03/23 20:52 [From Darvon] doxycycline AdvReac Unknown Verified 03/03/23 20:52 sulfamethoxazole AdvReac Unknown Verified 03/03/23 20:52 [From Bactrim] trimethoprim [From Bactrim] AdvReac Unknown Verified 03/03/23 20:52 - Social History Does the pt smoke?: Yes Smoking Status: Current every day smoker Does the pt drink ETOH?: Yes Does the pt have substance abuse?: No - Immunizations Immunizations are current?: Yes - POLST Patient has POLST: No PD ED PE NORMAL - Vitals Vital signs reviewed: Yes - General General: Alert and oriented X 3, No acute distress, Well developed/nourished - HEENT HEENT: Atraumatic, PERRL, EOMI, Moist mucous membranes, Pharynx benign, Dentition benign - Neck Neck: Supple, no meningeal sign, No bony TTP, C-Spine cleared by NEXUS criteria, Other (BL neck discomfort to palpation in trapezius muscle distribution) - Cardiac Cardiac: RRR - Respiratory Respiratory: No respiratory distress, Clear bilaterally - Derm Derm: Normal color, Warm and dry - Neuro Neuro: Alert and oriented X 3, floor framer 2-12 intact, No motor deficit, No sensory deficit, Normal speech Eye Opening: Spontaneous Motor: Obeys Commands Verbal: Oriented GCS Score: 15 Results - Vitals Vitals: Vital Signs - 24 hr 03/03/23 20:52 Temperature 36.5 C Heart Rate 87 Respiratory 16 Rate Blood Pressure 160/88 H O2 Saturation 100 Oxygen O2 Source Room air PD Medical Decision Making - ED course ED course: 57yF presents with head injury and subsequent severe headache/photophobia,face and neck pain/nausea. Not on thinners or AC, however CT head was employed given constellation of symptoms to r/o traumatic bleed. Headache and nausea improved s/p IVF, IV reglan, IV benadryl, oral flexeril. Concussion precautions given. Plan to f/u with pcp. Departure - Departure Clinical Impression: Head injury, Nausea, Face pain, Headache, Photophobia Condition: Stable Instructions: ED Head Injury Closed Comments: You were seen in the emergency department for head injury. Your head CT showed no bleeding in the brain. Please follow-up with your primary care provider and return to the emergency department if you have any new or worsening symptoms or other concerns. Forms: PCP List
--- NOTE | 2023-03-03 22:20 | CT Report ---
PROCEDURE: HEAD WO INDICATIONS: hit head 5:30pm. photophobia, nausea, ARAGON TECHNIQUE: Noncontrast 4.5 mm thick angled axial sections acquired from the foramen magnum to the vertex. For r adiation dose reduction, the following was used: automated exposure control, adjustment of mA and/or kV according to patient size. COMPARISON: None. FINDINGS: Image quality: Excellent. CSF spaces: Basal cisterns are patent. No extra-axial fluid collections. Ventricles are normal in size and shape. Brain: No midline shift. No intracranial masses or hemorrhage. Mild scattered chronic microvascular ischemic changes, most notably in the left frontal subcortical white matter. Skull and face: Calvarium and visualized facial bones are intact, without suspicious lesions. Sinuses: Postsurgical changes are noted in the paranasal sinuses. Mastoid air cells are clear. IMPRESSION: 1.No acute intracranial pathology. 2.Mild chronic microvascular ischemic changes. Reviewed by: Fernando Tang MD on 03/03/2023 10:19 PM [facility] Approved by: Fernando Tang MD on 03/03/2023 10:19 PM [facility] Station ID: [id number]
[2023-03-03] MEDS ORDERED: KETOROLAC 15 MG/ML VIAL IVP STA (22:52)
[2023-03-03 23:39] VITALS: BP 137/77
== END 2023-03-03 23:40 | disposition home or self-care (01) ==
LOC: ED 20:49
DX: S09.90XA Unspecified injury of head, initial encounter (principal); H53.149 Visual discomfort, unspecified; W22.8XXA Striking against or struck by other objects, initial encounter; R11.0 Nausea; I10 Essential (primary) hypertension; E11.9 Type 2 diabetes mellitus without complications; Z79.4 Long term (current) use of insulin; Z79.84 Long term (current) use of oral hypoglycemic drugs; F17.200 Nicotine dependence, unspecified, uncomplicated
CPT/HCPCS: 70450; 96374; 96375; 99283; 99284; A9270; J1200; J2765

== ENCOUNTER 2023-03-29 15:30 | Outpatient (CLI) | payer MEDICAID ==
[2023-03-29 18:22] LABS: BASOPHILS # (AUTO) 0.1 10^3/uL (0.0-0.1); BASOPHILS % (AUTO) 0.6 %; EOSINOPHILS # (AUTO) 0.4 10^3/uL (0.0-0.7); EOSINOPHILS % (AUTO) 3.9 %; HCT - HEMATOCRIT 38.4 % (37.0-47.0); HGB - HEMOGLOBIN 12.7 g/dL (12.0-16.0); LYMPHOCYTES # (AUTO) 2.5 10^3/uL (1.5-3.5); LYMPHOCYTES % (AUTO) 24.6 %; MEAN CORPUSCULAR HEMOGLOBIN 29.5 pg (27.0-31.0); MEAN CORPUSCULAR HGB CONC 33.1 g/dL (32.0-36.0); MEAN CORPUSCULAR VOLUME 89.1 fL (81.0-99.0); MEAN PLATELET VOLUME 10.4 fL (7.9-10.8); MONOCYTES # (AUTO) 0.7 10^3/uL (0.0-1.0); MONOCYTES % (AUTO) 7.3 %; NEUTROPHILS # (AUTO) 6.4 10^3/uL (1.5-6.6); NEUTROPHILS % (AUTO) 63.3 %; PLT - PLATELET COUNT 318 10^3/uL (130-450); RED BLOOD COUNT 4.31 10^6/uL (4.20-5.40); RED CELL DISTRIBUTION WIDTH 12.5 % (12.0-15.0); WHITE BLOOD COUNT 10.1 x10^3/uL (4.8-10.8)
[2023-03-29 18:52] LABS: CALCIUM 9.7 mg/dL (8.5-10.3); CREATININE 1.3 mg/dL (0.6-1.3); POTASSIUM 4.9 mmol/L (3.5-4.5)
[2023-03-29 19:39] LABS: THYROID STIMULATING HORMONE 1.55 uIU/mL (0.34-5.60)
== END 2023-03-29 15:45 | disposition home or self-care (01) ==
LOC: LAB.N 15:30
PROVIDERS: ATTEND Physician Assistant Medical
DX: R42 Dizziness and giddiness (principal)
CPT/HCPCS: 36415; 80048; 82607; 82746; 83540; 84443; 84466; 85025

== ENCOUNTER 2023-04-18 14:36 | Emergency (ER) | payer MEDICAID ==
[2023-04-18 14:50] VITALS: BP 117/71; O2SAT 98
[2023-04-18] MEDS ORDERED: CLINDAMYCIN 150 MG CAPSULE PO STA (14:54)
--- NOTE | 2023-04-18 14:56 | ED Physician Documentation ---
PD HPI WOUND RECHECK - Stated complaint Stated Complaint: ARAGON,LEG PX - Chief complaint Chief Complaint: Wound - Histroy obtained from History obtained from: Patient - Additional information Additional information: 57-year-old woman with diabetes, multiple sclerosis and multiple antibiotic allergies took an Avonex injection last Tuesday and last started to develop pain and redness at the site with low-grade fever. 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: Other : Retention, Incontinence, Nocturia, Frequency HEENT: Chronic vision loss, Chronic sinusitis, Chronic hearing loss Psych: Depression, Anxiety, Panic attacks, Post traumatic stress disorder Musculoskeletal: Osteoarthritis, Rheumatoid arthritis Derm: None, Other - Past Surgical History Past Surgical History: Yes General: Colonoscopy, EGD Ortho: Carpal Tunnel surgery /HAY RAKE OPERATOR: LEEP (Cervical surgery), Other HEENT: Tonsil/Adenoidectomy Derm: Skin grafts, Debridement - Present Medications Home Medications: Ambulatory Orders Medication Instructions Recorded Confirmed Metformin HCl 1,000 mg PO BIDWM 09/25/14 11/20/18 Cetirizine [ZyrTEC] 10 mg PO DAILY 08/12/16 11/20/18 Zonisamide 100 mg PO QPM 08/24/18 11/20/18 Albuterol Sulfate [Albuterol 2 puffs INH Q4H PRN 10/28/18 11/20/18 Sulfate Hfa] Cholecalciferol (Vitamin D3) 6,000 units PO DAILY 10/28/18 11/20/18 [Vitamin D3] Duloxetine HCl 30 mg PO QPM 10/28/18 11/20/18 Fluticasone [Flonase] 2 spray SB DAILY 10/28/18 11/20/18 Gabapentin 300 mg PO DAILY 10/28/18 11/20/18 Gabapentin 600 mg PO QPM 10/28/18 11/20/18 Glatiramer Acetate [Copaxone] 40 mg SUBQ SUWEFR@0900 10/28/18 11/20/18 Meloxicam 7.5 mg PO BID 10/28/18 11/20/18 Promethazine HCl 6.25 mg PO Q6H PRN 10/28/18 11/20/18 Rizatriptan Benzoate [Rizatriptan] 10 mg PO ONCE PRN 10/28/18 11/20/18 Blood-Glucose Meter [Glucometer] 1 each QID #1 each 10/30/18 11/20/18 Insulin Glargine [Lantus Solostar] 15 unit SQ DAILY #1 pen 10/30/18 11/20/18 Lancets/Blood Glucose Strips [Fora 1 each QID #120 combo..pkg 10/30/18 11/20/18 [id number] Strp-Lnct] Pen Needle, Diabetic [Pen Dexter] 1 each QID #120 dis.needle 10/30/18 11/20/18 Saccharomyces Boulardii [Florastor] 250 mg PO BID #60 capsule 10/30/18 11/20/18 Erythromycin Base [Erythromycin 1 film EACHEYE BID #1 oint...g. 12/10/19 Ophthalmic Ointment] predniSONE [Prednisone] 40 mg PO DAILY 4 Days #8 tablet 12/10/19 Nystatin [Nystop] 1 applic TOP BID #3 each 11/30/22 clindamycin HCL [Cleocin HCl] 300 mg PO QID #28 cap 04/18/23 - Allergies Allergies/Adverse Reactions: Allergies Allergy/AdvReac Type Severity Reaction Status Date / Time acetaminophen [From Vicodin] AdvReac Unknown Itching Verified 04/18/23 14:47 cephalexin AdvReac Unknown Respiratory Verified 04/18/23 14:47 ciprofloxacin [From Cipro] AdvReac Unknown Nausea Verified 04/18/23 14:47 codeine AdvReac Unknown Hives Verified 04/18/23 14:47 hydrocodone bitartrate * AdvReac Unknown Itching Verified 04/18/23 14:47 [From Vicodin] Penicillins AdvReac Unknown Itching Verified 04/18/23 14:47 propoxyphene HCl * AdvReac Unknown Hives Verified 04/18/23 14:47 [From Darvon] doxycycline AdvReac Unknown Verified 04/18/23 14:47 sulfamethoxazole AdvReac Unknown Verified 04/18/23 14:47 [From Bactrim] trimethoprim [From Bactrim] AdvReac Unknown Verified 04/18/23 14:47 - Social History Does the pt smoke?: Yes Smoking Status: Current every day smoker Does the pt drink ETOH?: Yes Does the pt have substance abuse?: No - Immunizations Immunizations are current?: Yes - POLST Patient has POLST: No PD ED PE NORMAL - Vitals Vital signs reviewed: Yes - General General: Alert and oriented X 3, No acute distress - Derm Derm: Other (Mild cellulitis of the anterior left thigh, ultrasound does not demonstrate a fluid collection.) - Neuro Neuro: Alert and oriented X 3, Normal speech Results - Vitals Vitals: Vital Signs - 24 hr 04/18/23 14:41 Temperature 36.1 C L Heart Rate 95 Respiratory 16 Rate Blood Pressure 117/71 O2 Saturation 98 Oxygen O2 Source Room air PD Medical Decision Making - ED course ED course: She has a mild case of cellulitis related to an Avonex injection. No pain out of proportion or abnormal vital signs to suggest necrotizing infection. Started on clindamycin noting multiple antibiotic allergies. Departure - Departure Disposition: 01 Home, Self Care Clinical Impression: Cellulitis of left leg Condition: Good Instructions: ED Infec Skin Cellulitis Prescriptions: clindamycin HCL [Cleocin HCl] 300 mg PO QID #28 cap Comments: Return if you worsen or fail to improve over the next few days. Follow-up with your doctor late this week for recheck.
== END 2023-04-18 15:07 | disposition home or self-care (01) ==
LOC: ED 14:36
DX: T80.89XA Other complications following infusion, transfusion and therapeutic injection, initial encounter (principal); L03.116 Cellulitis of left lower limb; Y84.8 Other medical procedures as the cause of abnormal reaction of the patient, or of later complication, without mention of misadventure at the time of the procedure; G35 Multiple sclerosis; Z88.1 Allergy status to other antibiotic agents; F17.200 Nicotine dependence, unspecified, uncomplicated
CPT/HCPCS: 99282; 99283

== ENCOUNTER 2023-05-21 08:00 | Outpatient (CLI) | payer MEDICAID ==
[2023-05-21 19:08] LABS: BASOPHILS # (AUTO) 0.1 10^3/uL (0.0-0.1); BASOPHILS % (AUTO) 0.8 %; EOSINOPHILS # (AUTO) 0.3 10^3/uL (0.0-0.7); EOSINOPHILS % (AUTO) 4.6 %; HCT - HEMATOCRIT 38.9 % (37.0-47.0); HGB - HEMOGLOBIN 12.9 g/dL (12.0-16.0); LYMPHOCYTES # (AUTO) 2.7 10^3/uL (1.5-3.5); LYMPHOCYTES % (AUTO) 36.7 %; MEAN CORPUSCULAR HEMOGLOBIN 29.5 pg (27.0-31.0); MEAN CORPUSCULAR HGB CONC 33.2 g/dL (32.0-36.0); MEAN PLATELET VOLUME 10.8 fL (7.9-10.8); MONOCYTES # (AUTO) 0.6 10^3/uL (0.0-1.0); MONOCYTES % (AUTO) 7.4 %; NEUTROPHILS # (AUTO) 3.8 10^3/uL (1.5-6.6); NEUTROPHILS % (AUTO) 50.2 %; PLT - PLATELET COUNT 319 10^3/uL (130-450); RED BLOOD COUNT 4.37 10^6/uL (4.20-5.40); WHITE BLOOD COUNT 7.5 x10^3/uL (4.8-10.8)
[2023-05-21 19:26] LABS: ALBUMIN 4.5 g/dL (3.2-5.5); ALBUMIN/GLOBULIN RATIO 1.4 (1.0-2.2); BILIRUBIN,TOTAL 0.4 mg/dL (0.2-1.0); CALCIUM 10.3 mg/dL (8.5-10.3); CREATININE 1.4 mg/dL (0.6-1.3); POTASSIUM 4.5 mmol/L (3.5-4.5); TOTAL PROTEIN 7.7 g/dL (6.4-8.9)
[2023-05-21 19:41] LABS: THYROID STIMULATING HORMONE 1.86 uIU/mL (0.34-5.60)
[2023-05-21 19:45] LABS: FERRITIN 63.6 ng/mL (11.0-306.8)
[2023-05-21 20:02] LABS: ESTIMATED AVERAGE GLUCOSE 186 mg/dL (70-100); HEMOGLOBIN A1c% 8.1 % (4.27-6.07)
== END 2023-05-21 23:59 | disposition home or self-care (01) ==
LOC: LAB.N 08:00
PROVIDERS: ATTEND Family Medicine
DX: D50.9 Iron deficiency anemia, unspecified (principal); R06.09 Other forms of dyspnea; R53.83 Other fatigue; E11.69 Type 2 diabetes mellitus with other specified complication; Z13.9 Encounter for screening, unspecified
CPT/HCPCS: 36415; 80053; 81599; 82728; 83036; 83540; 83880; 84443; 84466; 85025

== ENCOUNTER 2023-07-12 16:48 | Outpatient (CLI) | payer MEDICAID ==
[2023-07-12 20:48] LABS: CALCIUM 11.3 mg/dL (8.5-10.3); CREATININE 1.7 mg/dL (0.6-1.3)
[2023-07-12 21:44] LABS: ESTIMATED AVERAGE GLUCOSE 151 mg/dL (70-100); HEMOGLOBIN A1c% 6.9 % (4.27-6.07)
== END 2023-07-12 16:49 | disposition home or self-care (01) ==
LOC: LAB.N 16:48
PROVIDERS: ATTEND Nurse Practitioner Family
DX: E11.69 Type 2 diabetes mellitus with other specified complication (principal); I10 Essential (primary) hypertension; E53.8 Deficiency of other specified B group vitamins
CPT/HCPCS: 36415; 80048; 82607; 82746; 83036

== ENCOUNTER 2023-07-22 17:00 | Outpatient (CLI) | payer MEDICAID ==
[2023-07-24 16:07] LABS: MEASLES ANTIBODIES IGG >300.0 AU/mL (Immune >16.4); MUMPS ANTIBODIES IGG >300.0 AU/mL (Immune >10.9); VARICELLA-ZOSTER AB IGG >4000 index (Immune >165)
[2023-07-25 06:08] LABS: HEPATITIS B SURFACE AB QUANT <3.1 mIU/mL (Immunity>9.9)
== END 2023-07-22 17:15 | disposition home or self-care (01) ==
LOC: LAB.N 17:00
PROVIDERS: ATTEND Physician Assistant
DX: Z01.84 Encounter for antibody response examination (principal)
CPT/HCPCS: 36415; 86317; 86735; 86762; 86765; 86787

== ENCOUNTER 2023-10-06 08:56 | Outpatient (CLI) | payer MEDICAID ==
[2023-10-06 12:34] LABS: CALCIUM 10.1 mg/dL (8.5-10.3); CREATININE 1.3 mg/dL (0.6-1.3); POTASSIUM 4.9 mmol/L (3.5-4.5)
== END 2023-10-06 08:57 | disposition home or self-care (01) ==
LOC: LAB.N 08:56
PROVIDERS: ATTEND Internal Medicine Nephrology
DX: N05.9 Unspecified nephritic syndrome with unspecified morphologic changes (principal)
CPT/HCPCS: 36415; 80048

== ENCOUNTER 2023-10-22 09:48 | Outpatient (CLI) | payer MEDICAID ==
--- NOTE | 2023-10-22 14:48 | Ultrasound Report ---
PROCEDURE: Renal (Retroperitoneal) INDICATIONS: KIDNEY DYSFUNCTION TECHNIQUE: Real-time scanning was performed of the retroperitoneal organs, with image documentation. COMPARISON: None. FINDINGS: Kidneys: Kidneys are normal in size. Right kidney measures 9.7 cm long; left kidney measures 9.7 cm long. Right renal cortical thickness is 0.7 cm; left renal cortical thickness is 0.7 cm. No solid masses, hydronephrosis, or nephrolithiasis. Bladder: Pre-void bladder volume is 183 mL. Post-void residual is 10 mL. Pre-void images demonstra te no intraluminal masses or stones. On pre-void images, bilateral ureteral jets are noted with colo r Doppler interrogation. (Of note, ureteral jets may not be detectable in up to 25% of cases due to insufficient differences in specific gravity between ureteral and bladder urine). Miscellaneous: No free abdominal fluid. IMPRESSION: Unremarkable exam. Reviewed by: Migdalia Vázquez MD on 10/22/2023 2:47 PM PDT Approved by: Migdalia Vázquez MD on 10/22/2023 2:47 PM PDT Station ID: [id number]
== END 2023-10-22 09:49 | disposition home or self-care (01) ==
LOC: DI 09:48
PROVIDERS: ATTEND Internal Medicine Nephrology
DX: N17.9 Acute kidney failure, unspecified (principal); N32.0 Bladder-neck obstruction

== ENCOUNTER 2023-11-21 09:23 | Outpatient (CLI) | payer MEDICAID ==
[2023-11-21 13:08] LABS: CREATININE,URINE 48.1 mg/dL; PROTEIN/CREATININE RATIO,URINE 0.2 (<=0.2)
[2023-11-21 13:25] LABS: ALBUMIN 4.1 g/dL (3.2-5.5); ALBUMIN/GLOBULIN RATIO 1.2 (1.0-2.2); BILIRUBIN,TOTAL 0.4 mg/dL (0.2-1.0); CALCIUM 9.4 mg/dL (8.5-10.3); CREATININE 1.3 mg/dL (0.6-1.3); PHOSPHORUS 3.6 mg/dL (2.5-5.0); POTASSIUM 4.6 mmol/L (3.5-4.5); TOTAL PROTEIN 7.4 g/dL (6.4-8.9)
== END 2023-11-21 09:24 | disposition home or self-care (01) ==
LOC: LAB.N 09:23
PROVIDERS: ATTEND Internal Medicine Nephrology
DX: N05.9 Unspecified nephritic syndrome with unspecified morphologic changes (principal); N25.81 Secondary hyperparathyroidism of renal origin; R80.9 Proteinuria, unspecified; E83.30 Disorder of phosphorus metabolism, unspecified
CPT/HCPCS: 36415; 80053; 82570; 83970; 84100; 84156

== ENCOUNTER 2023-11-30 12:42 | Outpatient (CLI) | payer MEDICAID ==
[2023-11-30 18:23] LABS: ALBUMIN 4.2 g/dL (3.2-5.5); ALBUMIN/GLOBULIN RATIO 1.2 (1.0-2.2); ALKALINE PHOSPHATASE 79 IU/L (42-121); ALT ALANINE AMINOTRANSFERASE 12 IU/L (10-60); AST ASPARTATE AMINOTRANSFERASE 16 IU/L (10-42); BILIRUBIN,TOTAL 0.4 mg/dL (0.2-1.0); BUN - BLOOD UREA NITROGEN 27 mg/dL (6-20); CALCIUM 9.5 mg/dL (8.5-10.3); CARBON DIOXIDE - CO2 22 mmol/L (21-32); CHLORIDE 103 mmol/L (101-111); CHOL/HDL RATIO 2.8 (<4.4); CHOLESTEROL 147 mg/dL; CREATININE 1.5 mg/dL (0.6-1.3); GFR - MDRD 36 (>89); GLUCOSE 187 mg/dL (74-104); HDL CHOLESTEROL 53 mg/dL; LDL CHOLESTEROL,CALCULATED 59 mg/dL; LDL/HDL RATIO 1.1 (<4.4); POTASSIUM 4.4 mmol/L (3.5-4.5); SODIUM 134 mmol/L (135-145); TOTAL PROTEIN 7.6 g/dL (6.4-8.9); TRIGLYCERIDES 175 mg/dL; VLDL CHOLESTEROL 35 mg/dL
[2023-11-30 22:13] LABS: ESTIMATED AVERAGE GLUCOSE 151 mg/dL (70-100); HEMOGLOBIN A1c% 6.9 % (4.27-6.07)
== END 2023-11-30 12:43 | disposition home or self-care (01) ==
LOC: LAB.N 12:42
PROVIDERS: ATTEND Nurse Practitioner Family
DX: I12.9 Hypertensive chronic kidney disease with stage 1 through stage 4 chronic kidney disease, or unspecified chronic kidney disease (principal); E11.22 Type 2 diabetes mellitus with diabetic chronic kidney disease; N18.32 Chronic kidney disease, stage 3b; E78.5 Hyperlipidemia, unspecified
CPT/HCPCS: 36415; 80053; 80061; 82043; 82570; 83036; 83721